=== PATIENT | female | born 1930 | race Caucasian/White ===

== ENCOUNTER 2017-07-31 14:15 | Inpatient (IN) | payer OTHER ==
--- NOTE | 2017-07-31 17:51 | GHP ---
[f rep st] HISTORY AND PHYSICAL POST ADMISSION PHYSICIAN EVALUATION AND REHABILITATION TREATMENT PLAN DATE OF ADMISSION: 07/31/2017 DATE OF EVALUATION: 07/31/2017. TIME OF EVALUATION: 1615. REFERRING FACILITY: [facility]. REFERRING PHYSICIAN: Dr. Thompson IMPAIRMENT GROUP: 1.1 DATE OF ONSET: 07/27/2017. CONSULTING PHYSICIAN: Neurologist, Dr. Carranza. 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 ETIOLOGIC DIAGNOSIS: Left body involvement (right brain). HISTORY OF PRESENT ILLNESS: This patient developed left-sided weakness on 07/27. By the time she arrived at the emergency department, she was outside the window for tPA thrombolysis. 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 Subsequently, an MRI of the brain revealed a subacute to acute lacunar infarct in the right barksdale radiata, andextensive white matter changes consistent with chronic microvascular ischemic disease. . She had improvement in her left arm weakness. There was minimal left leg weakness, though on hospital day 2 the left leg became weaker. An echocardiogram was done which showed no PFO. She had mild aortic stenosis. She had been taking anagrelide for essential thrombocytosis. This was discontinued on the advice of the patient's archeology faculty member due to potential association with thrombosis. Her aspirin dose was increased from 81 mg to 325 mg daily. OTHER LABS AND STUDIES: LDL was 100. Hemoglobin A1c was 6. Basic metabolic profile showed a slightly low potassium at 3.3 and some dehydration with a BUN of 23 and a creatinine of 0.69. Otherwise, renal function and electrolytes were within normal limits. CBC was normal. Platelet count was 362, and historically her platelet count has been as high as in the 700s on review of her [facility] medical record. Coagulation studies were normal. Troponin was negative. PRECAUTIONS: She is a fall risk. ACTIVE COMORBIDITIES: She has no active tier 1, tier 2 or tier 3 comorbidities. PAST MEDICAL HISTORY: 1. Essential thrombocytosis. 2. Hypertension. 3. Dyslipidemia. PAST SURGICAL HISTORY: She had a bladder suspension and a hysterectomy. MEDICATIONS: Prior to admission she was taking anagrelide, hydrochlorothiazide , and aspirin at 81 mg daily. She was taking atorvastatin 40 mg at bedtime. ADMISSION MEDICATIONS: 1. Aspirin 325 mg p.o. daily. 2. Atorvastatin 40 mg p.o. at bedtime. 3. Cholecalciferol 2000 units p.o. daily. 4. Ferrous sulfate 325 mg p.o. daily. 5. Hydrochlorothiazide 25 mg p.o. daily. ALLERGIES: She has multiple allergies listed to: 1. Bacitracin. 2. Mupirocin. 3. Neomycin. 4. Polymyxin B from a use of a Neosporin product. 5. Cephalexin. 6. Hydroxyurea. 7. Penicillin. 8. Phenylbutazone. PSYCHOSOCIAL HISTORY: She lives with a long-term partner. His children are involved in her care, in particular his daughter. She is a nonsmoker. She typically has 1 glass of wine every evening. 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 FAMILY HISTORY: Noncontributory. REVIEW OF SYSTEMS: She reports that her left arm and leg feel heavy. She denies vision changes, difficulty swallowing, numbness or tingling of the extremities. She thinks her sensation is intact. She has a good appetite. She denies nausea, vomiting, constipation, or diarrhea. She denies any dysuria , urinary frequency or incontinence. Otherwise, a 10-point review of systems is negative. PHYSICAL EXAM: VITAL SIGNS: Blood pressure is 166/98, heart rate is 80, respiratory rate is 14, oxygen saturation is 92% on room air, temperature is 36.8 degrees centigrade. Her weight is 56.6 kg for a body mass index of 24.4. GENERAL: This is a well-nourished, well-developed woman, appears her chronologic age. Cooperative and in no acute distress. HEENT: Extraocular movements are intact. Pupils are equal, round, and reactive to light. Mucous membranes are moist. Dentition is in good condition. She has an uncrowded airway, Mallampati class 1. NECK: Supple. HEART: There is a regular rate and rhythm with no murmurs, rubs, or gallops. LUNGS: Clear to auscultation bilaterally. ABDOMEN: Soft, nontender, nondistended with normoactive bowel sounds and no hepatosplenomegaly. EXTREMITIES: There is no cyanosis or clubbing. There is trace edema to the left foot. She has pes planus on the left. Dorsalis pedis pulses are 2+ bilaterally. NEUROLOGIC: She is alert and oriented x3. Cranial nerves 2-12 are grossly intact. There is no focal weakness. Sensation is intact to light touch. She has ataxia in the left upper and lower extremities. Deep tendon reflexes are 2+ bilaterally at the biceps and patella and absent bilaterally at the Achilles tendons. Plantar reflex is indeterminate bilaterally. Rapid alternating movements are intact. [id number] is slow and inaccurate on the left upper extremity, but normal on the right upper extremity. She has left pronator drift. CURRENT LEVEL OF FUNCTION PER THE PREADMISSION SCREEN: Regarding diet, feeding , and swallowing, she required setup and was on regular textures. Grooming required setup and supervision. She needed assist for bathing and dressing. Toileting required assistance and verbal cues. Bed mobility required minimal assistance and transfers minimal assistance using a front-wheeled walker. Her balance was fair. Her endurance was poor. She was able to ambulate 125 feet with minimal assist. She needed assist for stair climbing. Regarding cognition , it was noted that she followed simple directions. She had impaired insight, and repetition was required for new learning. She was noted to have a fall risk , poor balance, and left hemiparesis. There are no significant differences on today's exam from the preadmission screen. IMPRESSION: This is an 87-year-old woman who suffered a right barksdale radiata lacunar infarct. She has ataxia more than weakness of the left upper and lower extremities, and she has impairments to balance, mobility, and ability to carry out activities of daily living as a result. She has comorbid essential thrombocytosis, which was treated with anagrelide. Anagrelide was discontinued due to potential adverse effect of thrombosis. 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 She has extensive white matter changes on brain MRI consistent with chronic microvascular ischemic disease. Echocardiogram also had incidental finding of mild aortic stenosis. She was medically stabilized and is appropriate for inpatient rehabilitation where she will benefit from physical therapy and occupational therapy to optimize mobility and activities of daily living and speech and language pathology regarding cognition. Her goal is to complete a rehabilitation stay and then return home with her partner and family. For a safe discharge, it is expected that she will achieve modified independence with mobility, activities of daily living, cognition and medication management. She will need any durable medical equipment as determined during her stay as well as home health care, again as determined during her stay. There will need to be family training. She will have therapy with Physical Therapy, Occupational Therapy, and Speech and Language Pathology for 60 minutes a day for each discipline on 5-7 days of the week. Her expected duration of stay is 7-10 days. It is anticipated that upon discharge she will continue to benefit from home health services including speech and language pathology, occupational therapy, and physical therapy. Additionally, she may benefit from a stroke support group. PLAN: 1. Cerebrovascular accident, lacunar, to the right barksdale radiata with left upper and lower extremity ataxia and balance impairment. PT and OT to optimize mobility and activities of daily living toward the modified independent level. 2. 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 Assessment and treatment per Speech and Language Pathology. 3. Secondary stroke prevention. Will continue blood pressure and lipid control. Aspirin has been increased from 81 mg to 325 mg daily. 4. Hypertension. Blood pressure was elevated on admission to the inpatient rehabilitation unit. She may still be within the window of permissive hypertension. Will continue hydrochlorothiazide at 25 mg daily and will observe as to whether she needs additional antihypertensives. 5. Essential thrombocytosis with anagrelide having been discontinued. Will follow her platelet count and consider further discussions with archeology faculty member, Dr. Duffy, regarding management if her platelet count begins to climb significantly. 6. Dyslipidemia. Continue atorvastatin. 7. She comes out of the hospital with a prescription for ferrous sulfate 325 mg p.o. daily. We will check an iron panel as well as CBC in the morning to determine if there is any anemia or continuing iron deficiency. 8. 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 It is unlikely that they are clinically significant. 9. Aortic stenosis is also an incidental finding. She has not had any signs or symptoms of congestive heart failure. Her family reports that 2 years ago she won her age class at age 86 in the [facility], and she and her have been quite active. 10. Prophylaxis. She was treated with enoxaparin while in the hospital, and this will be continued until it is determined that she has adequate mobility for a reduced DVT risk. Additionally, she will have sequential compression devices on her legs when she is in bed at night. Followup. Per hospital discharge summary, she is to follow up with neurologist , Dr. Carranza in 6-8 weeks or mid to late September. She is to follow up with archeology faculty member, Dr. Duffy, in 7-10 days, which would be the first or second week of August, and she is to follow up with primary care provider, Dr. Leidy Escobar, with an appointment set up for 08/02/2017. It is likely she will still be in inpatient rehabilitation, so a visit with Dr. Ecsobar will need to be postponed. /[id number]/MODL MTDD
[2017-07-31] MEDS: ATORVASTATIN CALCIUM 40 MG TAB PO SCH (21:08)
[2017-08-01] MEDS: CHOLECALCIFEROL VIT D3 2,000 UNITS TAB/CAP PO SCH (07:55)
[2017-08-01] MEDS: HYDROCHLOROTHIAZIDE 25 MG TAB PO SCH (07:55)
[2017-08-01] MEDS: ASPIRIN 325 MG TAB PO SCH (07:55)
[2017-08-01] MEDS: ENOXAPARIN 40 MG/0.4 ML SYR SC SCH (07:56)
[2017-08-01] MEDS ORDERED: FERROUS SULFATE 325 MG TAB PO SCH (08:00)
[2017-08-01 08:15] LABS: PLATELET COUNT 469 10^3/uL (150-400)
--- NOTE | 2017-08-01 12:29 | SOAPPROG ---
SOAP Progress Note Assessment/Plan: Assessment: * Cerebrovascular accident, lacunar, to the right barksdale radiata with left upper and lower extremity ataxia and balance impairment. * Has ambulated 70 ft with front wheeled walker and contact guard to minimal assist. * Continue PT and OT to optimize mobility and activities of daily living toward the modified independent level. 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 Assessment and treatment per Speech and Language Pathology. * Secondary stroke prevention. Will continue blood pressure and lipid control. Aspirin has been increased from 81 mg to 325 mg daily. * Hypertension. Blood pressures are elevated. Add amlodipine 2.5 mg at HS. Continue hydrochlorothiazide at 25 mg daily. 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 Platelets slightly elevated on CBC 08/01/2017. Will follow her platelet count and consider further discussions with latent fingerprint examiner, Dr. Duffy, regarding management if her platelet count begins to climb significantly. * Dyslipidemia. Continue atorvastatin. * No anemia or iron deficiency on labs 08/01/2017. Discontinue ferrous sulfate starting 08/02/2017. 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 It is unlikely that they are clinically significant. * Aortic stenosis is also an incidental finding. She has not had any signs or symptoms of congestive heart failure. Her family reports that 2 years ago she won her age class at age 86 in the [facility], and she and her have been quite active. * Prophylaxis. She was treated with enoxaparin while in the hospital, and this will be continued until it is determined that she has adequate mobility for a reduced DVT risk. Additionally, she will have sequential compression devices on her legs when she is in bed at night. Followup. Per hospital discharge summary, she is to follow up with neurologist , Dr. Carranza in 6-8 weeks or mid to late September. She is to follow up with latent fingerprint examiner, Dr. Duffy, in 7-10 days, which would be the first or second week of August, and she is to follow up with primary care provider, Dr. Leidy Escobar, with an appointment set up for 08/02/2017. It is likely she will still be in inpatient rehabilitation, so a visit with Dr. Escobar will need to be postponed. 08/01/17 13:50 Subjective: Still feels that her left leg is heavy. However feels that she has made a good start with therapies. Has diarrhea since early this morning. Otherwise no complaints. Slept well, not in pain, no cough or dyspnea. Objective: Vital Signs Temp Pulse Resp BP Pulse Ox 36.4 C 80 15 160/98 H 91 L 08/01/17 06:15 08/01/17 10:21 08/01/17 06:15 08/01/17 10:21 08/01/17 06:15 Laboratory Results 08/01/17 06:10 08/01/17 06:10 07/31/17 08/01/17 08/02/17 05:59 05:59 05:59 Intake Total 850 810 Output Total 500 1300 Balance 350 -490 Physical Exam - Physical Exam General Appearance: WD/WN, alert, no apparent distress Respiratory: normal breath sounds, No crackles, No rhonchi, No wheezing Cardiac/Chest: regular rate, rhythm, No edema, No diastolic murmur, No systolic murmur Abdomen: normal bowel sounds, non-tender, soft, No distended Neuro/Psych: alert, normal mood/affect, oriented x 3 ICD10 Worksheet Patient Problems: Problems Problem Status Onset CVA (cerebral vascular accident) Acute - ICD10 Problem Qualifiers (1) CVA (cerebral vascular accident)
[2017-08-01] MEDS ORDERED: NON-FORMULARY NEW DRUG EACHEYE PRN (14:37)
[2017-08-01] MEDS ORDERED: NON-FORMULARY NEW DRUG EACHEYE SCH ×2 (16:00→21:00)
--- NOTE | 2017-08-01 17:48 | PDOREHIP ---
Admission [facility] - Admission - 3 Day Assessment Period Admission Date/Day 1: 07/31/17 Day 2: 08/01/17 Day 3: 08/02/17 - Active Diagnoses Comorbidities and Co-existing Conditions at Admission: 27144. None of the Above - Skin Conditions Unhealed Pressure Ulcer (1 or more/Stage 1 or >)-Admission: 0. No
[2017-08-01] MEDS: ATORVASTATIN CALCIUM 40 MG TAB PO SCH ×2 (20:30→20:31)
[2017-08-01] MEDS: SODIUM CHLORIDE EACHEYE SCH ×2 (20:42→20:44)
[2017-08-01] MEDS: REFRESH PLUS EYE EACHEYE PRN (20:42)
[2017-08-02] MEDS: ACETAMINOPHEN 325 MG TAB PO PRN ×2 (02:00→23:57)
[2017-08-02] MEDS: ASPIRIN 325 MG TAB PO SCH (08:37)
[2017-08-02] MEDS: CHOLECALCIFEROL VIT D3 2,000 UNITS TAB/CAP PO SCH (08:39)
[2017-08-02] MEDS: HYDROCHLOROTHIAZIDE 25 MG TAB PO SCH (08:39)
[2017-08-02] MEDS: SODIUM CHLORIDE EACHEYE SCH ×4 (09:37→20:55)
[2017-08-02] MEDS: ENOXAPARIN 40 MG/0.4 ML SYR SC SCH (09:37)
[2017-08-02] MEDS: REFRESH PLUS EYE EACHEYE PRN (13:58)
--- NOTE | 2017-08-02 14:06 | SOAPPROG ---
SOAP Progress Note Assessment/Plan: Assessment: * Cerebrovascular accident, lacunar, to the right barksdale radiata with left upper and lower extremity ataxia and balance impairment. * Initial functional independence measure 71 on 08/02/2017. Requires minimal assist for ambulation and transfers. Grooming and hygiene is done seated with standby assist. Upper body dressing is done with standby assist, lower body with setup and standby assist. Shower transfer and toileting required contact assist. Has ambulated 70 ft. * Continue PT and OT to optimize mobility and activities of daily living toward the modified independent level. * Cognitive dysfunction. * Noted to have deficits to reasoning, memory, working memory, and attention, executive function, organization, and math skills. * Continue [employer]ID [employer] [employer]. * Secondary stroke prevention. Will continue blood pressure and lipid control. Aspirin has been increased from 81 mg to 325 mg daily. * Hypertension. Blood pressures are elevated. Added amlodipine 2.5 mg at HS . Continue hydrochlorothiazide at 25 mg daily. * If blood pressures remain above 140/90, increase amlodipine. 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 * Expect resolution over a period of weeks. * If symptoms continue to interfere with sleep, consider low-dose ropinirole or Sinemet at bedtime. 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 Platelets slightly elevated on CBC 08/01/2017. Will follow her platelet count and consider further discussions with pelt inspector, Dr. Duffy, regarding management if her platelet count begins to climb significantly. * Repeat CBC on 08/05/2017. * Dyslipidemia. Continue atorvastatin. * No anemia or iron deficiency on labs 08/01/2017. Discontinue ferrous sulfate starting 08/02/2017. 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 It is unlikely that they are clinically significant. * Aortic stenosis is also an incidental finding. She has not had any signs or symptoms of congestive heart failure. Her family reports that 2 years ago she won her age class at age 86 in the [facility] [place], and she and her have been quite active. * Prophylaxis. She was treated with enoxaparin while in the hospital, and this will be continued until it is determined that she has adequate mobility for a reduced DVT risk. Additionally, she will have sequential compression devices on her legs when she is in bed at night. Followup. Per hospital discharge summary, she is to follow up with neurologist , Dr. Carranza in 6-8 weeks or mid to late September. She is to follow up with pelt inspector, Dr. Duffy, in 7-10 days, which would be the first or second week of August, and she is to follow up with primary care provider, Dr. Leidy Escobar, with an appointment set up for 08/02/2017. It is likely she will still be in inpatient rehabilitation, so a visit with Dr. Escobar will need to be postponed. Attended staffing, 15 min. Discussed with case management, dietitian, nursing, PT, OT, SKID RO[employer] MAN. Has been living with her long-term partner; she does driving and other visually related tasks. Partners currently with his daughter. Discharge disposition is uncertain. Set tentative discharge date of 08/21/2017. 08/02/17 14:07 Subjective: Reports an episode of involuntary leg movement overnight nurse reports this happened approximately 1 in the morning she was given acetaminophen and was able to retain sleep after about an hour and a half. She has not had this kind of thing happen to her before. Otherwise without complaints. Diarrhea that she had yesterday has resolved. She was incontinent of urine x1 overnight. Objective: Vital Signs Temp Pulse Resp BP Pulse Ox 36.6 C 72 17 149/80 H 94 08/02/17 05:40 08/02/17 05:40 08/02/17 05:40 08/02/17 08:39 08/02/17 05:40 Laboratory Results 08/01/17 06:10 08/01/17 06:10 08/01/17 08/02/17 08/03/17 05:59 05:59 05:59 Intake Total 850 1510 600 Output Total 500 1750 850 Balance 350 -240 -250 - Time Spent With Patient Time Spent With Patient: Greater than 35 min floor time today, including more than 50% of time in coordination of care during staffing meeting, and counseling patient. Physical Exam - Physical Exam General Appearance: WD/WN, alert, no apparent distress Respiratory: normal breath sounds, No crackles, No wheezing Cardiac/Chest: regular rate, rhythm, No edema, No diastolic murmur, No systolic murmur Skin: normal color, warm/dry Extremities: No pedal edema, No calf tenderness, No swelling Neuro/Psych: alert, normal mood/affect, oriented x 3, abnormal gait (With front wheeled walker, slow, slightly wide-based, left lower extremity ataxia, contact guard assist per Physical therapy.) ICD10 Worksheet Patient Problems: Problems Problem Status Onset CVA (cerebral vascular accident) Acute - ICD10 Problem Qualifiers (1) CVA (cerebral vascular accident)
[2017-08-02] MEDS: ATORVASTATIN CALCIUM 40 MG TAB PO SCH (20:53)
[2017-08-03] MEDS: CHOLECALCIFEROL VIT D3 2,000 UNITS TAB/CAP PO SCH (07:56)
[2017-08-03] MEDS: ENOXAPARIN 40 MG/0.4 ML SYR SC SCH (07:56)
[2017-08-03] MEDS: ASPIRIN 325 MG TAB PO SCH (07:56)
[2017-08-03] MEDS: HYDROCHLOROTHIAZIDE 25 MG TAB PO SCH (07:56)
--- NOTE | 2017-08-03 09:28 | SOAPPROG ---
SOAP Progress Note Assessment/Plan: Assessment: * Cerebrovascular accident, lacunar, to the right barksdale radiata with left upper and lower extremity ataxia and balance impairment. * Initial functional independence measure 71 on 08/02/2017. Requires minimal assist for ambulation and transfers. Grooming and hygiene is done seated with standby assist. Upper body dressing is done with standby assist, lower body with setup and standby assist. Shower transfer and toileting required contact assist. Has ambulated 70 ft. * Continue PT and OT to optimize mobility and activities of daily living toward the modified independent level. * REVIEWED EXERCISES WITH PATIENT TO STRENGTH IN LEFT HIP FLEXORS, QUADRICEPS AND ANKLE DORSIFLEXORS. SHE CAN PERFORM THESE 20 TIMES PER HOUR WHILE AWAKE. * Cognitive dysfunction. * Noted to have deficits to reasoning, memory, working memory, and attention, executive function, organization, and math skills. * Continue HOSPITAL LABORATORY TECHNICIAN. * Secondary stroke prevention. Will continue blood pressure and lipid control. Aspirin has been increased from 81 mg to 325 mg daily. * Hypertension. Blood pressures are elevated. Added amlodipine 2.5 mg at HS . Continue hydrochlorothiazide at 25 mg daily. * If blood pressures remain above 140/90, increase amlodipine. BLOOD PRESSURE THIS MORNING WAS 133/79. 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 BY HER REPORTS THIS IS IMPROVING. * Expect resolution over a period of weeks. * If symptoms continue to interfere with sleep, consider low-dose ropinirole or Sinemet at bedtime. 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 Platelets slightly elevated on CBC 08/01/2017. Will follow her platelet count and consider further discussions with customer experience analyst, Dr. Duffy, regarding management if her platelet count begins to climb significantly. * Repeat CBC on 08/05/2017. * Dyslipidemia. Continue atorvastatin. * No anemia or iron deficiency on labs 08/01/2017. Discontinue ferrous sulfate starting 08/02/2017. 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 It is unlikely that they are clinically significant. * Aortic stenosis is also an incidental finding. She has not had any signs or symptoms of congestive heart failure. Her family reports that 2 years ago she won her age class at age 86 in the [facility], and she and her have been quite active. * Prophylaxis. She was treated with enoxaparin while in the hospital, and this will be continued until it is determined that she has adequate mobility for a reduced DVT risk. Additionally, she will have sequential compression devices on her legs when she is in bed at night. Followup. Per hospital discharge summary, she is to follow up with neurologist , Dr. Carranza in 6-8 weeks or mid to late September. She is to follow up with customer experience analyst, Dr. Duffy, in 7-10 days, which would be the first or second week of August, and she is to follow up with primary care provider, Dr. Leidy Escobar, with an appointment set up for 08/02/2017. It is likely she will still be in inpatient rehabilitation, so a visit with Dr. Escobar will need to be postponed. 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 HE SHE REPORTS HER LEFT FOOT HEEL SOMEWHAT HEAVY BUT SHE DOES NOTICE IMPROVED LEFT UPPER AND LEFT LOWER EXTREMITY STRENGTH. Objective: Vital Signs Temp Pulse Resp BP Pulse Ox 36.4 C 65 17 133/79 H 91 L 08/03/17 05:26 08/03/17 05:26 08/03/17 05:26 08/03/17 05:26 08/03/17 05:26 Laboratory Results 08/01/17 06:10 08/01/17 06:10 08/02/17 08/03/17 08/04/17 05:59 05:59 05:59 Intake Total 1510 1090 Output Total 1750 2650 Balance -240 -1560 Physical Exam - Physical Exam General Appearance: WD/WN, alert, no apparent distress Respiratory: lungs clear, normal breath sounds Cardiac/Chest: regular rate, rhythm, No edema Abdomen: normal bowel sounds, non-tender, soft Skin: normal color, warm/dry Neuro/Psych: normal mood/affect, oriented x 3, motor weakness (MILD LEFT UPPER AND LEFT LOWER EXTREMITY WEAKNESS, MORE PRONOUNCED IN THE LEFT LOWER EXTREMITY AND MORE PRONOUNCED IN THE ANKLE DORSIFLEXORS ALTHOUGH HER STRENGTH IS QUITE FUNCTIONAL.) ICD10 Worksheet Patient Problems: Problems Problem Status Onset CVA (cerebral vascular accident) Acute
[2017-08-03] MEDS: SODIUM CHLORIDE EACHEYE SCH ×4 (11:12→21:11)
[2017-08-03] MEDS: REFRESH PLUS EYE EACHEYE PRN (12:52)
[2017-08-03] MEDS: ATORVASTATIN CALCIUM 40 MG TAB PO SCH (20:57)
[2017-08-04] MEDS: HYDROCHLOROTHIAZIDE 25 MG TAB PO SCH (08:53)
[2017-08-04] MEDS: SODIUM CHLORIDE EACHEYE SCH ×4 (08:53→22:01)
[2017-08-04] MEDS: ENOXAPARIN 40 MG/0.4 ML SYR SC SCH (08:53)
[2017-08-04] MEDS: ASPIRIN 325 MG TAB PO SCH (08:53)
[2017-08-04] MEDS: CHOLECALCIFEROL VIT D3 2,000 UNITS TAB/CAP PO SCH (08:53)
--- NOTE | 2017-08-04 10:03 | SOAPPROG ---
SOAP Progress Note Assessment/Plan: Assessment: * Cerebrovascular accident, lacunar, to the right barksdale radiata with left upper and lower extremity ataxia and balance impairment. * Initial functional independence measure 71 on 08/02/2017. Requires minimal assist for ambulation and transfers. SHE REPORTS SHE IS INCREASING HER AMBULATION DISTANCES WHILE IN PHYSICAL THERAPY. Grooming and hygiene is done seated with standby assist. Upper body dressing is done with standby assist, lower body with setup and standby assist. Shower transfer and toileting required contact assist. Has ambulated 70 ft. * Continue PT and OT to optimize mobility and activities of daily living toward the modified independent level. * SHE REPORTS COMPLIANCE WITH EXERCISES TO STRENGTHEN LEFT HIP FLEXORS, QUADRICEPS AND ANKLE DORSIFLEXORS. SHE CAN PERFORM THESE 20 TIMES PER HOUR WHILE AWAKE. * Cognitive dysfunction. * Noted to have deficits to reasoning, memory, working memory, and attention, executive function, organization, and math skills. * Continue CHILD CARE PROVIDER. * Secondary stroke prevention. Will continue blood pressure and lipid control. Aspirin has been increased from 81 mg to 325 mg daily. * Hypertension. BLOOD PRESSURE THIS MORNING WAS 138/78. 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 BY HER REPORTS THIS IS IMPROVING. * Expect resolution over a period of weeks. * If symptoms continue to interfere with sleep, consider low-dose ropinirole or Sinemet at bedtime. 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 Platelets slightly elevated on CBC 08/01/2017. Will follow her platelet count and consider further discussions with miter sawyer, Dr. Duffy, regarding management if her platelet count begins to climb significantly. * Repeat CBC on 08/05/2017. * Dyslipidemia. Continue atorvastatin. * No anemia or iron deficiency on labs 08/01/2017. Discontinue ferrous sulfate starting 08/02/2017. 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 It is unlikely that they are clinically significant. * Aortic stenosis is also an incidental finding. She has not had any signs or symptoms of congestive heart failure. Her family reports that 2 years ago she won her age class at age 86 in the [facility], and she and her have been quite active. * Prophylaxis. She was treated with enoxaparin while in the hospital, and this will be continued until it is determined that she has adequate mobility for a reduced DVT risk. Additionally, she will have sequential compression devices on her legs when she is in bed at night. Followup. Per hospital discharge summary, she is to follow up with neurologist , Dr. Carranza in 6-8 weeks or mid to late September. She is to follow up with miter sawyer, Dr. Duffy, in 7-10 days, which would be the first or second week of August, and she is to follow up with primary care provider, Dr. Leidy Escobar, with an appointment set up for 08/02/2017. It is likely she will still be in inpatient rehabilitation, so a visit with Dr. Escobar will need to be postponed. Plan: 08/03/17 09:28 08/04/17 10:02 Subjective: NO NEW COMPLAINTS THIS MORNING. SHE REPORTS THAT SHE IS INCREASING HER AMBULATION DISTANCES WITH PHYSICAL THERAPY. SHE HAS BEEN DOING HER BEDSIDE LOWER EXTREMITY STRENGTHENING EXERCISES. Objective: Vital Signs Temp Pulse Resp BP Pulse Ox 36.5 C 75 16 138/78 H 94 08/04/17 06:19 08/04/17 06:19 08/04/17 06:19 08/04/17 06:19 08/04/17 06:19 Laboratory Results 08/01/17 06:10 08/01/17 06:10 08/03/17 08/04/17 08/05/17 05:59 05:59 05:59 Intake Total 1090 1630 360 Output Total 2650 1999 Balance -1560 -370 360 Physical Exam - Physical Exam General Appearance: WD/WN, alert, no apparent distress Respiratory: lungs clear, normal breath sounds Cardiac/Chest: No edema Abdomen: non-tender, soft Skin: normal color, warm/dry Extremities: No pedal edema, No calf tenderness, No swelling, No Evan's sign Neuro/Psych: normal mood/affect, oriented x 3, motor weakness (LEFT LOWER EXTREMITY WEAKNESS GREATER THAN RIGHT LOWER EXTREMITY.) ICD10 Worksheet Patient Problems: Problems Problem Status Onset CVA (cerebral vascular accident) Acute
[2017-08-04] MEDS: REFRESH PLUS EYE EACHEYE PRN ×2 (16:36→20:36)
[2017-08-04] MEDS: ATORVASTATIN CALCIUM 40 MG TAB PO SCH (20:32)
[2017-08-05] MEDS: ACETAMINOPHEN 325 MG TAB PO PRN ×2 (01:34→23:20)
[2017-08-05 08:15] LABS: PLATELET COUNT 634 10^3/uL (150-400)
[2017-08-05] MEDS: HYDROCHLOROTHIAZIDE 25 MG TAB PO SCH (08:53)
[2017-08-05] MEDS: ASPIRIN 325 MG TAB PO SCH (08:53)
[2017-08-05] MEDS: CHOLECALCIFEROL VIT D3 2,000 UNITS TAB/CAP PO SCH (08:53)
[2017-08-05] MEDS: SODIUM CHLORIDE EACHEYE SCH ×4 (08:53→21:25)
[2017-08-05] MEDS: ENOXAPARIN 40 MG/0.4 ML SYR SC SCH (08:53)
--- NOTE | 2017-08-05 14:13 | SOAPPROG ---
SOAP Progress Note Assessment/Plan: Assessment: * Cerebrovascular accident, lacunar, to the right barksdale radiata with left upper and lower extremity ataxia and balance impairment. * Initial functional independence measure 71 on 08/02/2017. Requires minimal assist for ambulation and transfers. Grooming and hygiene are done seated with standby assist. Upper body dressing is done with standby assist, lower body with setup and standby assist. Shower transfer and toileting required contact assist. Has ambulated 70 ft. * Continue PT and OT to optimize mobility and activities of daily living toward the modified independent level. * Cognitive dysfunction. * Noted to have deficits to reasoning, memory, working memory, and attention, executive function, organization, and math skills. * Using a log book. * Continue BOARD DESIGN ENGINEER. * Secondary stroke prevention. Will continue blood pressure and lipid control. Aspirin has been increased from 81 mg to 325 mg daily. * Hypertension. Blood pressures are elevated. Added amlodipine 2.5 mg at HS . Continue hydrochlorothiazide at 25 mg daily. * If blood pressures remain above 140/90, increase amlodipine. 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 * Expect resolution over a period of weeks. * If symptoms continue to interfere with sleep, consider low-dose ropinirole or Sinemet at bedtime. 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 Platelets slightly elevated at 468 on CBC 08/01/2017, increased to 684 on 08/05/2017. * Discussed with Dr. Duffy on 08/05/2017 (cell # [phone]). Advises weekly CBC; call him with result. * Dyslipidemia. Continue atorvastatin. * No anemia or iron deficiency on labs 08/01/2017. Discontinued ferrous sulfate starting 08/02/2017. 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 It is unlikely that they are clinically significant. * Aortic stenosis is also an incidental finding. She has not had any signs or symptoms of congestive heart failure. Her family reports that 2 years ago she won her age class at age 86 in the [facility], and she and her have been quite active. * Prophylaxis. She was treated with enoxaparin while in the hospital, and this will be continued until it is determined that she has adequate mobility for a reduced DVT risk. Additionally, she will have sequential compression devices on her legs when she is in bed at night. Followup. Per hospital discharge summary, she is to follow up with neurologist , Dr. Carranza in 6-8 weeks or mid to late September. She is to follow up with control tower operator, Dr. Duffy, the week of discharge from Inpatient Rehabilitation, and she is to follow up with primary care provider, Dr. Leidy Escobar after discharge from inpatient rehabilitation. Has been living with her long-term partner; she does driving and other visually related tasks as he has visual impairment due to macular degeneration, but is otherwise self sufficient. She intends to return home with her partner. Tentative discharge date of 08/21/2017. Will have home OT, PT and BOARD DESIGN ENGINEER. 08/05/17 14:58 Subjective: Involuntary contraction at the left hip interfered with her sleep last night. She slept well the previous 2 nights. Otherwise doing well, not in pain, no cough or dyspnea, no fevers or chills. Feels she is walking better and the use of her left hand is improving also. Objective: Vital Signs Temp Pulse Resp BP Pulse Ox 36.4 C 71 16 141/77 H 91 L 08/05/17 06:41 08/05/17 06:41 08/05/17 06:41 08/05/17 06:41 08/05/17 06:41 Laboratory Results 08/05/17 06:30 08/01/17 06:10 08/04/17 08/05/17 08/06/17 05:59 05:59 05:59 Intake Total 1630 1500 660 Output Total 2000 1700 625 Balance -370 -200 35 Physical Exam - Physical Exam General Appearance: WD/WN, alert, no apparent distress Respiratory: normal breath sounds, No crackles, No rhonchi, No wheezing Cardiac/Chest: regular rate, rhythm, No edema, No diastolic murmur, No systolic murmur Skin: normal color, warm/dry Neuro/Psych: alert, normal mood/affect, oriented x 3, motor weakness (Working with OT, manipulating coins in her left hand and dropping them through a slot into a container. Able to complete the action but slow and ataxic.) ICD10 Worksheet Patient Problems: Problems Problem Status Onset CVA (cerebral vascular accident) Acute - ICD10 Problem Qualifiers (1) CVA (cerebral vascular accident)
[2017-08-05] MEDS: REFRESH PLUS EYE EACHEYE PRN (18:11)
[2017-08-05] MEDS: ATORVASTATIN CALCIUM 40 MG TAB PO SCH (21:22)
[2017-08-06] MEDS: ASPIRIN 325 MG TAB PO SCH (08:38)
[2017-08-06] MEDS: HYDROCHLOROTHIAZIDE 25 MG TAB PO SCH (08:38)
[2017-08-06] MEDS: CHOLECALCIFEROL VIT D3 2,000 UNITS TAB/CAP PO SCH (08:38)
[2017-08-06] MEDS: ENOXAPARIN 40 MG/0.4 ML SYR SC SCH (09:28)
[2017-08-06] MEDS: SODIUM CHLORIDE EACHEYE SCH ×4 (09:28→20:07)
--- NOTE | 2017-08-06 16:29 | SOAPPROG ---
SOAP Progress Note Assessment/Plan: Assessment: * Cerebrovascular accident, lacunar, to the right barksdale radiata, with left upper and lower extremity ataxia and balance impairment. * Initial functional independence measure 71 on 08/02/2017. Requires minimal assist for ambulation and transfers. Grooming and hygiene are done seated with standby assist. Upper body dressing is done with standby assist, lower body with setup and standby assist. Shower transfer and toileting required contact assist. Has ambulated 70 ft. * Continue PT and OT to optimize mobility and activities of daily living toward the modified independent level. * Cognitive dysfunction. * Noted to have deficits to reasoning, memory, working memory, and attention, executive function, organization, and math skills. * Using a log book. * Continue LABORATORY SCIENTIST. * Secondary stroke prevention. Will continue blood pressure and lipid control. Aspirin has been increased from 81 mg to 325 mg daily. * Hypertension. Blood pressures are elevated. Added amlodipine 2.5 mg at HS . Continue hydrochlorothiazide at 25 mg daily. * If blood pressures remain above 140/90, increase amlodipine. 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 * Expect resolution over a period of weeks. * Continue to interfere with sleep. Will treat with Sinemet CR, 25/100, starting tonight, 08/06/2017. 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 Platelets slightly elevated at 468 on CBC 08/01/2017, increased to 684 on 08/05/2017. * Discussed with Dr. Duffy on 08/05/2017 (cell # [phone]). Advises weekly CBC; call him with result. * Dyslipidemia. Continue atorvastatin. * No anemia or iron deficiency on labs 08/01/2017. Discontinued ferrous sulfate starting 08/02/2017. 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 It is unlikely that they are clinically significant. * Aortic stenosis is also an incidental finding. She has not had any signs or symptoms of congestive heart failure. Her family reports that 2 years ago she won her age class at age 86 in the [facility], and she and her have been quite active. * Prophylaxis. She was treated with enoxaparin while in the hospital, and this will be continued until it is determined that she has adequate mobility for a reduced DVT risk. Additionally, she will have sequential compression devices on her legs when she is in bed at night. Followup. Per hospital discharge summary, she is to follow up with neurologist , Dr. Carranza in 6-8 weeks or mid to late September. She is to follow up with tile grader, Dr. Duffy, the week of discharge from Inpatient Rehabilitation, and she is to follow up with primary care provider, Dr. Leidy Escobar after discharge from inpatient rehabilitation. Has been living with her long-term partner; she does driving and other visually related tasks as he has visual impairment due to macular degeneration, but is otherwise self sufficient. She intends to return home with her partner. Tentative discharge date of 08/21/2017. Will have home OT, PT and LABORATORY SCIENTIST. 08/06/17 16:24 Subjective: Reports involuntary contractions of the right hip again last night which interfered with sleep. Was given acetaminophen which did not help much. Otherwise without complaints but feels that she is not at her best due to lack of sleep. Objective: Vital Signs Temp Pulse Resp BP Pulse Ox 36.6 C 68 18 153/89 H 92 08/06/17 06:03 08/06/17 06:03 08/06/17 06:03 08/06/17 08:38 08/06/17 06:03 Laboratory Results 08/05/17 06:30 08/01/17 06:10 08/05/17 08/06/17 08/07/17 05:59 05:59 05:59 Intake Total 1500 1310 420 Output Total 1700 1975 300 Balance -200 -665 120 Physical Exam - Physical Exam General Appearance: WD/WN, alert, no apparent distress Respiratory: normal breath sounds, No crackles, No rhonchi, No wheezing Cardiac/Chest: regular rate, rhythm, No edema, No diastolic murmur, No systolic murmur Skin: normal color, warm/dry Neuro/Psych: alert, normal mood/affect, oriented x 3, abnormal gait (With front wheeled walker and contact guard assist per Physical therapy, slow, with ataxic placement of left foot.) ICD10 Worksheet Patient Problems: Problems Problem Status Onset CVA (cerebral vascular accident) Acute - ICD10 Problem Qualifiers (1) CVA (cerebral vascular accident)
[2017-08-06] MEDS: ATORVASTATIN CALCIUM 40 MG TAB PO SCH (20:06)
[2017-08-06] MEDS: CARBIDOPA/LEVO CR 25 MG/100 MG TAB PO SCH (20:06)
[2017-08-07] MEDS: ASPIRIN 325 MG TAB PO SCH (08:55)
[2017-08-07] MEDS: CHOLECALCIFEROL VIT D3 2,000 UNITS TAB/CAP PO SCH (08:55)
[2017-08-07] MEDS: HYDROCHLOROTHIAZIDE 25 MG TAB PO SCH (08:57)
[2017-08-07] MEDS: ENOXAPARIN 40 MG/0.4 ML SYR SC SCH (08:57)
[2017-08-07] MEDS: SODIUM CHLORIDE EACHEYE SCH ×4 (08:59→20:19)
--- NOTE | 2017-08-07 15:35 | SOAPPROG ---
SOAP Progress Note Assessment/Plan: Assessment: * Cerebrovascular accident, lacunar, to the right barksdale radiata, with left upper and lower extremity ataxia and balance impairment. * Initial functional independence measure 71 on 08/02/2017. Requires minimal assist for ambulation and transfers. Grooming and hygiene are done seated with standby assist. Upper body dressing is done with standby assist, lower body with setup and standby assist. Shower transfer and toileting required contact assist. Has ambulated 70 ft. * Continue PT and OT to optimize mobility and activities of daily living toward the modified independent level. * Cognitive dysfunction. * Noted to have deficits to reasoning, memory, working memory, and attention, executive function, organization, and math skills. * Using a log book. * Continue DESK OPERATOR. * Secondary stroke prevention. Will continue blood pressure and lipid control. Aspirin has been increased from 81 mg to 325 mg daily. * Hypertension. Blood pressures are elevated. Added amlodipine 2.5 mg at HS . Continue hydrochlorothiazide at 25 mg daily. * If blood pressures remain above 140/90, increase amlodipine. 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 * Expect resolution over a period of weeks. * Initiated Sinemet CR, 25/100 at HS, 08/06/2017. Had no symptoms overnight. 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 Platelets slightly elevated at 468 on CBC 08/01/2017, increased to 684 on 08/05/2017. * Discussed with Dr. Duffy on 08/05/2017 (cell # [phone]). Advises weekly CBC; call him with result. * Dyslipidemia. Continue atorvastatin. * No anemia or iron deficiency on labs 08/01/2017. Discontinued ferrous sulfate starting 08/02/2017. 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 It is unlikely that they are clinically significant. * Aortic stenosis is also an incidental finding. She has not had any signs or symptoms of congestive heart failure. Her family reports that 2 years ago she won her age class at age 86 in the [facility], and she and her have been quite active. * Prophylaxis. She was treated with enoxaparin while in the hospital, and this will be continued until it is determined that she has adequate mobility for a reduced DVT risk. Additionally, she will have sequential compression devices on her legs when she is in bed at night. Followup. Per hospital discharge summary, she is to follow up with neurologist , Dr. Carranza in 6-8 weeks or mid to late September. She is to follow up with retirement specialist, Dr. Duffy, the week of discharge from Inpatient Rehabilitation, and she is to follow up with primary care provider, Dr. Leidy Escobar after discharge from inpatient rehabilitation. Has been living with her long-term partner; she does driving and other visually related tasks as he has visual impairment due to macular degeneration, but is otherwise self sufficient. She intends to return home with her partner. Tentative discharge date of 08/21/2017. Will have home OT, PT and DESK OPERATOR. 08/07/17 15:33 Subjective: No complaints. Working with therapies. Feels like she is getting better every day. Objective: Vital Signs Temp Pulse Resp BP Pulse Ox 36.6 C 58 L 16 131/57 H 97 08/07/17 07:27 08/07/17 07:27 08/07/17 07:27 08/07/17 08:57 08/07/17 07:27 Laboratory Results 08/05/17 06:30 08/01/17 06:10 08/06/17 08/07/17 08/08/17 05:59 05:59 05:59 Intake Total 1310 770 510 Output Total 3332 9809 825 Balance -665 -730 -315 Physical Exam - Physical Exam General Appearance: WD/WN, alert, no apparent distress Respiratory: No respiratory distress, No accessory muscle use Skin: normal color, warm/dry Neuro/Psych: alert, normal mood/affect, oriented x 3, motor weakness (Working with physical therapist on weight shift onto left foot with stabilization of pelvis and initiating step with right foot.) ICD10 Worksheet Patient Problems: Problems Problem Status Onset CVA (cerebral vascular accident) Acute - ICD10 Problem Qualifiers (1) CVA (cerebral vascular accident)
[2017-08-07] MEDS: ATORVASTATIN CALCIUM 40 MG TAB PO SCH (20:18)
[2017-08-07] MEDS: CARBIDOPA/LEVO CR 25 MG/100 MG TAB PO SCH (20:19)
[2017-08-08] MEDS: HYDROCHLOROTHIAZIDE 25 MG TAB PO SCH (08:41)
[2017-08-08] MEDS: ENOXAPARIN 40 MG/0.4 ML SYR SC SCH (08:41)
[2017-08-08] MEDS: CHOLECALCIFEROL VIT D3 2,000 UNITS TAB/CAP PO SCH (08:42)
[2017-08-08] MEDS: ASPIRIN 325 MG TAB PO SCH (08:42)
[2017-08-08] MEDS: SODIUM CHLORIDE EACHEYE SCH ×4 (08:47→20:24)
--- NOTE | 2017-08-08 15:38 | SOAPPROG ---
SOAP Progress Note Assessment/Plan: Assessment: * Cerebrovascular accident, lacunar, to the right barksdale radiata, with left upper and lower extremity ataxia and balance impairment. * Initial functional independence measure 71 on 08/02/2017. Requires minimal assist for ambulation and transfers. Grooming and hygiene are done seated with standby assist. Upper body dressing is done with standby assist, lower body with setup and standby assist. Shower transfer and toileting required contact assist. Has ambulated 70 ft. * Continue PT and OT to optimize mobility and activities of daily living toward the modified independent level. * Cognitive dysfunction. * Noted to have deficits to reasoning, memory, working memory, and attention, executive function, organization, and math skills. * Using a log book. * Continue NEW AUTOS DELIVERY DRIVER. * Secondary stroke prevention. Will continue blood pressure and lipid control. Aspirin has been increased from 81 mg to 325 mg daily. * Hypertension. Blood pressures are elevated. Added amlodipine 2.5 mg at HS . Continue hydrochlorothiazide at 25 mg daily. * Blood pressures often above 140/90. Increase amlodipine to 5 mg at HS starting 08/08/2017. 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 * Expect resolution over a period of weeks. * Initiated Sinemet CR, 25/100 at HS, 08/06/2017. Had no symptoms overnight. 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 Platelets slightly elevated at 468 on CBC 08/01/2017, increased to 684 on 08/05/2017. * Discussed with Dr. Duffy on 08/05/2017 (cell # [phone]). Advises weekly CBC; call him with result. * Dyslipidemia. Continue atorvastatin. * No anemia or iron deficiency on labs 08/01/2017. Discontinued ferrous sulfate starting 08/02/2017. 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 It is unlikely that they are clinically significant. * Aortic stenosis is also an incidental finding. She has not had any signs or symptoms of congestive heart failure. Her family reports that 2 years ago she won her age class at age 86 in the [facility], and she and her have been quite active. * Prophylaxis. She was treated with enoxaparin while in the hospital, and this will be continued until it is determined that she has adequate mobility for a reduced DVT risk. Additionally, she will have sequential compression devices on her legs when she is in bed at night. Followup. Per hospital discharge summary, she is to follow up with neurologist , Dr. Carranza in 6-8 weeks or mid to late September. She is to follow up with education assistant, Dr. Duffy, the week of discharge from Inpatient Rehabilitation, and she is to follow up with primary care provider, Dr. Leidy Escobar after discharge from inpatient rehabilitation. Has been living with her long-term partner; she does driving and other visually related tasks as he has visual impairment due to macular degeneration, but is otherwise self sufficient. She intends to return home with her partner. Tentative discharge date of 08/21/2017. Will have home OT, PT and NEW AUTOS DELIVERY DRIVER. 08/08/17 15:35 Subjective: No complaints. No cough or dyspnea, no fevers or chills, not in pain. She reports that she has exercises from the therapist that she can do while in her room. Objective: Vital Signs Temp Pulse Resp BP Pulse Ox 36.6 C 71 16 140/78 H 90 L 08/08/17 06:33 08/08/17 06:33 08/08/17 06:33 08/08/17 06:33 08/08/17 06:33 Laboratory Results 08/05/17 06:30 08/01/17 06:10 08/07/17 08/08/17 08/09/17 05:59 05:59 05:59 Intake Total 770 810 690 Output Total 1500 1825 150 Balance -730 -1015 540 Physical Exam - Physical Exam General Appearance: WD/WN, alert, no apparent distress Respiratory: normal breath sounds, No crackles, No rhonchi, No wheezing Cardiac/Chest: regular rate, rhythm, No edema, No diastolic murmur, No systolic murmur Skin: normal color, warm/dry Neuro/Psych: alert, normal mood/affect, oriented x 3 ICD10 Worksheet Patient Problems: Problems Problem Status Onset CVA (cerebral vascular accident) Acute - ICD10 Problem Qualifiers (1) CVA (cerebral vascular accident)
[2017-08-08] MEDS: CARBIDOPA/LEVO CR 25 MG/100 MG TAB PO SCH (20:22)
[2017-08-08] MEDS: ATORVASTATIN CALCIUM 40 MG TAB PO SCH (20:22)
[2017-08-09] MEDS: ENOXAPARIN 40 MG/0.4 ML SYR SC SCH (07:58)
[2017-08-09] MEDS: HYDROCHLOROTHIAZIDE 25 MG TAB PO SCH (08:00)
[2017-08-09] MEDS: ASPIRIN 325 MG TAB PO SCH (08:00)
[2017-08-09] MEDS: CHOLECALCIFEROL VIT D3 2,000 UNITS TAB/CAP PO SCH (08:00)
[2017-08-09] MEDS: SODIUM CHLORIDE EACHEYE SCH ×4 (09:36→21:17)
--- NOTE | 2017-08-09 14:49 | SOAPPROG ---
SOAP Progress Note Assessment/Plan: Assessment: * Cerebrovascular accident, lacunar, to the right barksdale radiata, with left upper and lower extremity ataxia and balance impairment. * Initial functional independence measure 71 on 08/02/2017; improved to 91 as of 08/09/2017. Standby assist to contact guard assist for mobility. Activities daily living standby assist except for independent with bathing. Has ambulated more than 150 ft. * Continue PT and OT to optimize mobility and activities of daily living toward the modified independent level. * Cognitive dysfunction. * Noted to have deficits to working memory and divided attention. * Using a log book. * Continue PRESETTER OPERATOR. * Secondary stroke prevention. Will continue blood pressure and lipid control. Aspirin has been increased from 81 mg to 325 mg daily. * Hypertension. Blood pressures are elevated. Added amlodipine 2.5 mg at HS . Continue hydrochlorothiazide at 25 mg daily. * Blood pressures often above 140/90. Increase amlodipine to 5 mg at HS starting 08/08/2017. 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 * Expect resolution over a period of weeks. * Initiated Sinemet CR, 25/100 at HS, 08/06/2017. Had no symptoms overnight. 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 Platelets slightly elevated at 468 on CBC 08/01/2017, increased to 684 on 08/05/2017. * Discussed with Dr. Duffy on 08/05/2017 (cell # [phone]). Advises weekly CBC; call him with result. Next blood draw at planned for 08/12/2017. * Dyslipidemia. Continue atorvastatin. * No anemia or iron deficiency on labs 08/01/2017. Discontinued ferrous sulfate starting 08/02/2017. 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 It is unlikely that they are clinically significant. * Aortic stenosis is also an incidental finding. She has not had any signs or symptoms of congestive heart failure. Her family reports that 2 years ago she won her age class at age 86 in the [facility], and she and her have been quite active. * Prophylaxis. She was treated with enoxaparin while in the hospital, and this will be continued until it is determined that she has adequate mobility for a reduced DVT risk. Additionally, she will have sequential compression devices on her legs when she is in bed at night. Followup. Per hospital discharge summary, she is to follow up with neurologist , Dr. Carranza in 6-8 weeks or mid to late September. She is to follow up with engraver jewelry, Dr. Duffy, the week of discharge from Inpatient Rehabilitation, and she is to follow up with primary care provider, Dr. Leidy Escobar after discharge from inpatient rehabilitation. Attended staffing, 15 min. Discussed with case management, dietitian, nursing, PT, OT, PRESETTER OPERATOR. Has been living with her long-term partner; she does driving and other visually related tasks as he has visual impairment due to macular degeneration, but is otherwise self sufficient. She she values her independence highly and intends to return home with her partner. She will need to be able to climb and descend stairs safely. She may have to accept assistance in the home. Tentative discharge date of 08/16/2017. Will have home OT, PT and PRESETTER OPERATOR. 08/09/17 14:43 Subjective: No complaints. Asks about likelihood of a subsequent stroke. Asks about blood pressure medications. Working with therapies, feeling stronger but knows that she is not yet walking normally. Sleeps well. No fevers or chills, no cough or dyspnea. Objective: Vital Signs Temp Pulse Resp BP Pulse Ox 36.4 C 91 16 150/80 H 95 08/09/17 07:06 08/09/17 07:06 08/09/17 07:06 08/09/17 07:06 08/09/17 07:06 Laboratory Results 08/05/17 06:30 08/01/17 06:10 08/08/17 08/09/17 08/10/17 05:59 05:59 05:59 Intake Total 810 1340 240 Output Total 9830 7652 327 Balance -1015 -410 -660 - Time Spent With Patient Time Spent With Patient: Greater than 35 min floor time today, including more than 50% of time in coordination of care during staffing meeting, and counseling patient. Physical Exam - Physical Exam General Appearance: WD/WN, alert, no apparent distress Respiratory: No respiratory distress, No accessory muscle use Skin: normal color, warm/dry Neuro/Psych: alert, normal mood/affect, oriented x 3, abnormal gait (With front wheeled walker, slow, mild ataxia with placement of left foot. Standby assist per Physical therapy.) ICD10 Worksheet Patient Problems: Problems Problem Status Onset CVA (cerebral vascular accident) Acute - ICD10 Problem Qualifiers (1) CVA (cerebral vascular accident)
[2017-08-09] MEDS: REFRESH PLUS EYE EACHEYE PRN (20:00)
[2017-08-09] MEDS: ATORVASTATIN CALCIUM 40 MG TAB PO SCH (20:03)
[2017-08-09] MEDS: CARBIDOPA/LEVO CR 25 MG/100 MG TAB PO SCH (20:03)
[2017-08-10] MEDS: HYDROCHLOROTHIAZIDE 25 MG TAB PO SCH (09:01)
[2017-08-10] MEDS: CHOLECALCIFEROL VIT D3 2,000 UNITS TAB/CAP PO SCH (09:01)
[2017-08-10] MEDS: ENOXAPARIN 40 MG/0.4 ML SYR SC SCH (09:01)
[2017-08-10] MEDS: ASPIRIN 325 MG TAB PO SCH (09:01)
[2017-08-10] MEDS: SODIUM CHLORIDE EACHEYE SCH ×4 (09:50→20:53)
--- NOTE | 2017-08-10 13:38 | SOAPPROG ---
SOAP Progress Note Assessment/Plan: Assessment: * Cerebrovascular accident, lacunar, with left christi ataxia and balance impairment. * Initial functional independence measure 71 on 08/02/2017; improved to 91 as of 08/09/2017. Standby assist to contact guard assist for mobility. Activities daily living standby assist except for independent with bathing. Has ambulated more than 150 ft. * Continue PT and OT to optimize mobility and activities of daily living toward the modified independent level. * Cognitive dysfunction. * deficits to working memory and divided attention. * Using a log book. * Continue METROLOGY SPECIALIST. * Secondary stroke prevention. Will continue blood pressure and lipid control. Aspirin 325 mg daily. * Hypertension. Blood pressures are elevated. Added amlodipine 2.5 mg at HS . Continue hydrochlorothiazide at 25 mg daily. * Blood pressures often above 140/90. Increase amlodipine to 5 mg at HS starting 08/08/2017. 118/66 this morning. 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 * Expect resolution over a period of weeks. * Initiated Sinemet CR, 25/100 at HS, 08/06/2017. Had no symptoms overnight. 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 Platelets slightly elevated at 468 on CBC 08/01/2017, increased to 684 on 08/05/2017. * Discussed with Dr. Duffy on 08/05/2017 (cell # [phone]). Advises weekly CBC; call him with result. Next blood draw at planned for 08/12/2017. * Dyslipidemia. Continue atorvastatin. * No anemia or iron deficiency on labs 08/01/2017. Discontinued ferrous sulfate starting 08/02/2017. 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 It is unlikely that they are clinically significant. * Aortic stenosis is also an incidental finding. She has not had any signs or symptoms of congestive heart failure. Her family reports that 2 years ago she won her age class at age 86 in the [facility], and she and her have been quite active. * Prophylaxis. She was treated with enoxaparin while in the hospital, and this will be continued until it is determined that she has adequate mobility for a reduced DVT risk. Additionally, she will have sequential compression devices on her legs when she is in bed at night. Followup. Per hospital discharge summary, she is to follow up with neurologist , Dr. Carranza in 6-8 weeks or mid to late September. She is to follow up with veterinary dentist, Dr. Duffy, the week of discharge from Inpatient Rehabilitation, and she is to follow up with primary care provider, Dr. Leidy Escobar after discharge from inpatient rehabilitation. Tentative discharge date of 08/16/2017, with home OT, PT and METROLOGY SPECIALIST. 08/09/17 14:43 Subjective: No complaints. Sleeps well. No fevers or chills, no cough or dyspnea. Objective: Plan: 08/10/17 13:36 08/10/17 13:38 Objective: Vital Signs Temp Pulse Resp BP Pulse Ox 36.6 C 68 14 118/66 93 08/10/17 11:25 08/10/17 11:25 08/10/17 11:25 08/10/17 11:25 08/10/17 11:25 Laboratory Results 08/05/17 06:30 08/01/17 06:10 08/09/17 08/10/17 08/11/17 05:59 05:59 05:59 Intake Total 1340 860 300 Output Total 1750 1550 Balance -410 -690 300 Physical Exam - Physical Exam General Appearance: alert, no apparent distress Respiratory: lungs clear Cardiac/Chest: regular rate, rhythm Skin: normal color, warm/dry Extremities: No pedal edema Neuro/Psych: abnormal gait, motor weakness, cognition abnormalities, other (no acut changes) ICD10 Worksheet Patient Problems: Problems Problem Status Onset CVA (cerebral vascular accident) Acute
[2017-08-10] MEDS: CARBIDOPA/LEVO CR 25 MG/100 MG TAB PO SCH (20:13)
[2017-08-10] MEDS: ATORVASTATIN CALCIUM 40 MG TAB PO SCH (20:13)
[2017-08-10] MEDS: REFRESH PLUS EYE EACHEYE PRN (20:13)
[2017-08-11] MEDS: CHOLECALCIFEROL VIT D3 2,000 UNITS TAB/CAP PO SCH (09:08)
[2017-08-11] MEDS: ASPIRIN 325 MG TAB PO SCH (09:08)
[2017-08-11] MEDS: SODIUM CHLORIDE EACHEYE SCH ×4 (09:09→21:22)
[2017-08-11] MEDS: HYDROCHLOROTHIAZIDE 25 MG TAB PO SCH (09:09)
[2017-08-11] MEDS: ENOXAPARIN 40 MG/0.4 ML SYR SC SCH (09:09)
--- NOTE | 2017-08-11 11:27 | SOAPPROG ---
SOAP Progress Note Assessment/Plan: Assessment: 87 YO female s/p CVA * Cerebrovascular accident, lacunar, with left christi ataxia and balance impairment. * Initial functional independence measure 71 on 08/02/2017; improved to 91 as of 08/09/2017. Standby assist to contact guard assist for mobility. Activities daily living standby assist except for independent with bathing. Has ambulated more than 150 ft. * Continue PT and OT to optimize mobility and activities of daily living toward the modified independent level. * Cognitive dysfunction. * deficits to working memory and divided attention. * Using a log book. * Continue APARTMENT HOUSE MANAGER. * Secondary stroke prevention. Will continue blood pressure and lipid control. Aspirin 325 mg daily. * Hypertension. 127/68 this morning. Continue hydrochlorothiazide 25 mg daily , and amlodipine 5 mg at HS starting 08/08/2017. * Blood pressures often above 140/90. 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 * Expect resolution over a period of weeks. * Initiated Sinemet CR, 25/100 at HS, 08/06/2017. Had no symptoms overnight. 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 Platelets slightly elevated at 468 on CBC 08/01/2017, increased to 684 on 08/05/2017. * Discussed with Dr. Duffy on 08/05/2017 (cell # [phone]). Advises weekly CBC; call him with result. Next blood draw at planned for 08/12/2017. * Dyslipidemia. Continue atorvastatin. * No anemia or iron deficiency on labs 08/01/2017. Discontinued ferrous sulfate starting 08/02/2017. 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 It is unlikely that they are clinically significant. * Aortic stenosis is also an incidental finding. She has not had any signs or symptoms of congestive heart failure. Her family reports that 2 years ago she won her age class at age 86 in the [facility], and she and her have been quite active. * Prophylaxis. She was treated with enoxaparin while in the hospital, and this will be continued until it is determined that she has adequate mobility for a reduced DVT risk. Additionally, she will have sequential compression devices on her legs when she is in bed at night. Followup. Per hospital discharge summary, she is to follow up with neurologist , Dr. Carranza in 6-8 weeks or mid to late September. She is to follow up with education spec, Dr. Dufyf, the week of discharge from Inpatient Rehabilitation, and she is to follow up with primary care provider, Dr. Leidy Escobar after discharge from inpatient rehabilitation. Tentative discharge date of 08/16/2017, with home OT, PT and APARTMENT HOUSE MANAGER. Subjective: No complaints. Sleeps well. No fevers/chills, chest pain, no cough or dyspnea. Objective: Plan: Cont Dr Griffin's rehab treatment plan 08/11/17 11:24 Objective: Vital Signs Temp Pulse Resp BP Pulse Ox 36.5 C 75 16 127/68 H 92 08/11/17 06:22 08/11/17 06:22 08/11/17 06:22 08/11/17 09:09 08/11/17 06:22 Laboratory Results 08/05/17 06:30 08/01/17 06:10 08/10/17 08/11/17 08/12/17 05:59 05:59 05:59 Intake Total 860 1500 270 Output Total 1550 200 Balance -690 1300 270 Physical Exam - Physical Exam General Appearance: alert, no apparent distress Neck: supple Respiratory: lungs clear Cardiac/Chest: regular rate, rhythm Skin: normal color, warm/dry Extremities: No pedal edema, No calf tenderness Neuro/Psych: alert, normal mood/affect, abnormal gait (balance improving), cognition abnormalities, other (no acute changes) ICD10 Worksheet Patient Problems: Problems Problem Status Onset CVA (cerebral vascular accident) Acute
[2017-08-11] MEDS: ATORVASTATIN CALCIUM 40 MG TAB PO SCH (20:46)
[2017-08-11] MEDS: CARBIDOPA/LEVO CR 25 MG/100 MG TAB PO SCH (20:47)
[2017-08-12 08:29] LABS: PLATELET COUNT 752 10^3/uL (150-400)
[2017-08-12] MEDS: ASPIRIN 325 MG TAB PO SCH (08:31)
[2017-08-12] MEDS: CHOLECALCIFEROL VIT D3 2,000 UNITS TAB/CAP PO SCH (08:32)
[2017-08-12] MEDS: ENOXAPARIN 40 MG/0.4 ML SYR SC SCH (08:51)
[2017-08-12] MEDS: HYDROCHLOROTHIAZIDE 25 MG TAB PO SCH (08:53)
[2017-08-12] MEDS: SODIUM CHLORIDE EACHEYE SCH ×4 (09:03→20:47)
--- NOTE | 2017-08-12 15:05 | SOAPPROG ---
SOAP Progress Note Assessment/Plan: Assessment: * Cerebrovascular accident, lacunar, to the right barksdale radiata, with left upper and lower extremity ataxia and balance impairment. * Initial functional independence measure 71 on 08/02/2017; improved to 91 as of 08/09/2017. Standby assist to contact guard assist for mobility. Activities daily living standby assist except for independent with bathing. Has ambulated more than 150 ft. * Continue PT and OT to optimize mobility and activities of daily living toward the modified independent level. * Cognitive dysfunction. * Noted to have deficits to working memory and divided attention. * Using a log book. * Continue MEMBER SERVICES REPRESENTATIVE. * Secondary stroke prevention. Will continue blood pressure and lipid control. Aspirin has been increased from 81 mg to 325 mg daily. * Hypertension. Blood pressures were elevated. Added amlodipine 2.5 mg at HS . Continue hydrochlorothiazide at 25 mg daily. * Well controlled after increase of amlodipine to 5 mg at HS starting 08/08/2017. 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 * Expect resolution over a period of weeks. * Initiated Sinemet CR, 25/100 at HS, 08/06/2017. Had no symptoms overnight. Advise trial of discontinuation after 08/26/2017. 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 Platelets slightly elevated at 468 on CBC 08/01/2017, increased to 684 on 08/05/2017. * Discussed with Dr. Duffy on 08/05/2017 (cell # [phone]). Advises weekly CBC; call him with result. * Platelets 752 on 08/12/2017. Dr. Garcia recommends initiating peg awaited interferon alpha and 45 mcg q.week. She can follow up with Dr. Duffy on 2017 to recheck CBC and provide additional dosing if needed. * Dyslipidemia. Continue atorvastatin. * No anemia or iron deficiency on labs 08/01/2017. Discontinued ferrous sulfate starting 08/02/2017. 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 It is unlikely that they are clinically significant. * Aortic stenosis is also an incidental finding. She has not had any signs or symptoms of congestive heart failure. Her family reports that 2 years ago she won her age class at age 86 in the [facility], and she and her have been quite active. * Prophylaxis. She was treated with enoxaparin while in the hospital, and this will be continued until it is determined that she has adequate mobility for a reduced DVT risk. Additionally, she will have sequential compression devices on her legs when she is in bed at night. Followup. Per hospital discharge summary, she is to follow up with neurologist , Dr. Carranza in 6-8 weeks or mid to late September. She is to follow up with unloader, Dr. Duffy, on 08/19/2017, and she is to follow up with primary care provider, Dr. Leidy Escobar after discharge from inpatient rehabilitation. Has been living with her long-term partner; she does driving and other visually related tasks as he has visual impairment due to macular degeneration, but is otherwise self sufficient. She she values her independence highly and intends to return home with her partner. She will need to be able to climb and descend stairs safely. She may have to accept assistance in the home. Tentative discharge date of 08/16/2017. Will have home OT, PT and MEMBER SERVICES REPRESENTATIVE. 08/12/17 15:06 Subjective: Reports insomnia. After she awakens to urinate during the night she is unable to get back to sleep for awhile. She thinks lack of sleep is clouding her thinking and interfering with her work with MEMBER SERVICES REPRESENTATIVE. She reports she has some worries about how she and her partner will get by after she goes home, as he has low vision and neither of them will be driving. Otherwise doing well, no fevers or chills, no cough or dyspnea, not in pain. Denies involuntary leg movements overnight. Objective: Vital Signs Temp Pulse Resp BP Pulse Ox 36.4 C 64 16 127/65 H 92 08/12/17 06:21 08/12/17 06:21 08/12/17 06:21 08/12/17 08:53 08/12/17 06:21 Laboratory Results 08/12/17 06:00 08/01/17 06:10 08/11/17 08/12/17 08/13/17 05:59 05:59 05:59 Intake Total 1500 1200 600 Output Total 200 1025 600 Balance 1300 175 0 Physical Exam - Physical Exam General Appearance: WD/WN, alert, no apparent distress Respiratory: normal breath sounds, No crackles, No rhonchi, No wheezing Cardiac/Chest: regular rate, rhythm, No edema, No diastolic murmur, No systolic murmur Skin: normal color, warm/dry Neuro/Psych: alert, normal mood/affect, oriented x 3 ICD10 Worksheet Patient Problems: Problems Problem Status Onset CVA (cerebral vascular accident) Acute - ICD10 Problem Qualifiers (1) CVA (cerebral vascular accident)
[2017-08-12] MEDS ORDERED: PEGINTERFERON ALFA SC ONE (18:00)
[2017-08-12] MEDS: traZODone 50 MG TAB PO SCH (20:45)
[2017-08-12] MEDS: ATORVASTATIN CALCIUM 40 MG TAB PO SCH (20:45)
[2017-08-12] MEDS: CARBIDOPA/LEVO CR 25 MG/100 MG TAB PO SCH (20:45)
[2017-08-13] MEDS: HYDROCHLOROTHIAZIDE 25 MG TAB PO SCH (08:23)
[2017-08-13] MEDS: CHOLECALCIFEROL VIT D3 2,000 UNITS TAB/CAP PO SCH (08:25)
[2017-08-13] MEDS: ASPIRIN 325 MG TAB PO SCH (08:25)
[2017-08-13] MEDS: SODIUM CHLORIDE EACHEYE SCH ×4 (08:26→20:11)
[2017-08-13] MEDS: ENOXAPARIN 40 MG/0.4 ML SYR SC SCH (09:34)
--- NOTE | 2017-08-13 11:00 | SOAPPROG ---
SOAP Progress Note Assessment/Plan: 87-year-old woman status post stroke, lacunar comma to the right barksdale radiata with left upper and lower extremity ataxia and balance impairment. Today's update: She slept very well with the added trazodone, feels somewhat groggy today. I anticipate that this will improve and we will monitor this issue. She is receiving her 1st dose of interferon alpha today, monitoring for response and side effects, given for essential thrombocytosis. Participating well in therapies, no other issues getting in the way of her progress. This patient is new to me and all her medical issues are new as well. A total of 25 min was spent on the floor in the care of the patient, the majority of which was spent counseling and coordination of care regarding sleep issues, dosing of new medication. Hypertension is managed well on present doses. Additional issues reviewed but without change include secondary stroke prevention, restless legs syndrome, dyslipidemia, cerebrovascular aneurysms, aortic stenosis, and prophylaxis. Tentative discharge is for 08/16/2017 with home OT, PT, and RELAY MECHANIC. 08/13/17 10:57 Subjective: Chief complaint: Insomnia No acute events overnight. Patient endorses that she slept much better on trazodone, slightly groggy today. No issues sleeping last night. She is receiving her 1st dose of interferon alpha today for essential thrombocytosis. Nursing provided her with additional information regarding potential side effects. She has not taken his medication before. No shortness of breath or chest pain, no new numbness, tingling, or weakness. Objective: Vital Signs Temp Pulse Resp BP Pulse Ox 36.3 C 71 16 110/61 90 L 08/13/17 06:18 08/13/17 06:18 08/13/17 06:18 08/13/17 08:23 08/13/17 06:18 Laboratory Results 08/12/17 06:00 08/01/17 06:10 08/12/17 08/13/17 08/14/17 05:59 05:59 05:59 Intake Total 1200 1240 360 Output Total 1025 800 Balance 175 440 360 Physical Exam - Physical Exam General Appearance: WD/WN, alert, no apparent distress EENT: No scleral icterus (R), No scleral icterus (L) Respiratory: lungs clear, normal breath sounds, No respiratory distress, No accessory muscle use, No decreased breath sounds, No rales, No rhonchi, No wheezing Cardiac/Chest: normal peripheral pulses, regular rate, rhythm, No edema, No diastolic murmur, No systolic murmur Skin: normal color, warm/dry, No cyanosis, No diaphoresis Extremities: No pedal edema, No swelling Neuro/Psych: alert, normal mood/affect, oriented x 3, other (Decreased rapid alternating movements on the left upper limb) ICD10 Worksheet Patient Problems: Problems Problem Status Onset CVA (cerebral vascular accident) Acute
[2017-08-13] MEDS ORDERED: PEGINTERFERON ALFA SC ONE (13:00)
[2017-08-13] MEDS: traZODone 50 MG TAB PO SCH (20:09)
[2017-08-13] MEDS: CARBIDOPA/LEVO CR 25 MG/100 MG TAB PO SCH (20:10)
[2017-08-13] MEDS: ATORVASTATIN CALCIUM 40 MG TAB PO SCH (20:10)
[2017-08-14] MEDS: CHOLECALCIFEROL VIT D3 2,000 UNITS TAB/CAP PO SCH (08:07)
[2017-08-14] MEDS: ASPIRIN 325 MG TAB PO SCH (08:07)
[2017-08-14] MEDS: ENOXAPARIN 40 MG/0.4 ML SYR SC SCH (08:07)
[2017-08-14] MEDS: SODIUM CHLORIDE EACHEYE SCH ×4 (08:08→21:49)
[2017-08-14] MEDS: HYDROCHLOROTHIAZIDE 25 MG TAB PO SCH (08:09)
--- NOTE | 2017-08-14 14:34 | SOAPPROG ---
SOAP Progress Note Assessment/Plan: Assessment: * Cerebrovascular accident, lacunar, to the right barksdale radiata, with left upper and lower extremity ataxia and balance impairment. * Initial functional independence measure 71 on 08/02/2017; improved to 91 as of 08/09/2017, and to 94 as of 08/14/2017. Standby assist with front wheeled walker for transfers, walks with standby assist and front wheeled walker but can need contact guard assist for bot balance when turning. Timed epi timed get up and go test was 28.5 sec. She has ascended and descended 18 stairs with 1 rail and contact guard assist. She is negotiated a curb step with a front wheeled walker and contact guard assist she is noted to have decreased memory for safety she is advancing to independent in room over the next few days. Grooming and hygiene are done seated with modified independence or standing with standby assist upper body dressing is independent, lower body dressing requires distance supervision. Toilet and shower transfers are done with standby assist, bathing with supervision, and toileting with standby assist she did a meal prep for which she required cuing regarding safe mobility but otherwise was safe in the kitchen. * Has ambulated more than 150 ft. * Continue PT and OT to optimize mobility and activities of daily living toward the modified independent level. * Cognitive dysfunction. * Noted to have deficits to working memory and divided attention, and to have reduced insight and mental flexibility she has 10-20% error rate on details on simulated medication and bill paying activities.. * Using a log book. * Continue CONFIGURATION MANAGEMENT ADVISOR. * Secondary stroke prevention. Will continue blood pressure and lipid control. Aspirin has been increased from 81 mg to 325 mg daily. * Hypertension. Blood pressures were elevated. Added amlodipine 2.5 mg at HS . Continue hydrochlorothiazide at 25 mg daily. * Well controlled after increase of amlodipine to 5 mg at HS starting 08/08/2017. 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 * Expect resolution over a period of weeks. * Initiated Sinemet CR, 25/100 at HS, 08/06/2017. Had no symptoms overnight. Advise trial of discontinuation after 08/26/2017. 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 Platelets slightly elevated at 468 on CBC 08/01/2017, increased to 684 on 08/05/2017. * Discussed with Dr. Duffy on 08/05/2017 (cell # [phone]). Advises weekly CBC; call him with result. * Platelets 752 on 08/12/2017. Dr. Garcia recommends initiating peg awaited interferon alpha and 45 mcg q.week; had 1st dose on 08/13/2017. She can follow up with Dr. Duffy after discharge. Recheck CBC on 08/19/2017. * Dyslipidemia. Continue atorvastatin. * No anemia or iron deficiency on labs 08/01/2017. Discontinued ferrous sulfate starting 08/02/2017. 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 It is unlikely that they are clinically significant. * Aortic stenosis is also an incidental finding. She has not had any signs or symptoms of congestive heart failure. Her family reports that 2 years ago she won her age class at age 86 in the [facility], and she and her have been quite active. * Prophylaxis. She was treated with enoxaparin while in the hospital. Mobility is improved and she is ambulating more than 150 ft multiple times a day. Discontinuing enoxaparin 08/14/2017. Followup. Per hospital discharge summary, she is to follow up with neurologist , Dr. Carranza in 6-8 weeks or mid to late September. She is to follow up with coat joiner, Dr. Duffy, on 08/26/2017, and she is to follow up with primary care provider, Dr. Leidy Escobar after discharge from inpatient rehabilitation. Follow-up CT angiogram regarding cerebral aneurysms on approximately 01/25/2018. Follow-up echocardiogram regarding mild aortic stenosis in approximately 1 year. Attended staffing, 15 min. Discussed with case management, dietitian, nursing, PT, OT, CONFIGURATION MANAGEMENT ADVISOR. Attended family conference, 30 min, long-term partner and his daughter present. Has been living with her long-term partner; she has done driving and other visually related tasks as he has visual impairment due to macular degeneration, but is otherwise self sufficient. She values her independence highly and intends to return home with her partner. She will need to be able to climb and descend stairs safely. Assistance at home is strongly recommended at least for the 1st few days. Tentative discharge date of 2017. Will have home OT, PT and CONFIGURATION MANAGEMENT ADVISOR. 08/14/17 14:25 Subjective: No complaints today. Feels like she is moving better. Slept well. Objective: Vital Signs Temp Pulse Resp BP Pulse Ox 36.6 C 81 16 111/60 93 08/14/17 06:36 08/14/17 06:36 08/14/17 06:36 08/14/17 08:09 08/14/17 06:36 Laboratory Results 08/12/17 06:00 08/01/17 06:10 08/13/17 08/14/17 08/15/17 05:59 05:59 05:59 Intake Total 1240 1430 600 Output Total 800 Balance 440 1430 600 - Time Spent With Patient Time Spent With Patient: Greater than 35 min floor time today, including more than 50% of time in coordination of care during staffing meeting, and counseling patient and family during family conference. Physical Exam - Physical Exam General Appearance: WD/WN, alert, no apparent distress Respiratory: No respiratory distress, No accessory muscle use Skin: normal color, warm/dry Neuro/Psych: alert, normal mood/affect, oriented x 3, abnormal gait (Slow, slightly wide based, with front wheeled walker, accompanied by physical therapist.) ICD10 Worksheet Patient Problems: Problems Problem Status Onset CVA (cerebral vascular accident) Acute - ICD10 Problem Qualifiers (1) CVA (cerebral vascular accident)
[2017-08-14] MEDS: CARBIDOPA/LEVO CR 25 MG/100 MG TAB PO SCH (21:48)
[2017-08-14] MEDS: ATORVASTATIN CALCIUM 40 MG TAB PO SCH (21:48)
[2017-08-14] MEDS: traZODone 50 MG TAB PO SCH (21:49)
[2017-08-15] MEDS: CHOLECALCIFEROL VIT D3 2,000 UNITS TAB/CAP PO SCH (08:29)
[2017-08-15] MEDS: HYDROCHLOROTHIAZIDE 25 MG TAB PO SCH (08:29)
[2017-08-15] MEDS: ASPIRIN 325 MG TAB PO SCH (08:29)
[2017-08-15] MEDS: SODIUM CHLORIDE EACHEYE SCH ×4 (09:11→20:37)
--- NOTE | 2017-08-15 13:23 | SOAPPROG ---
SOAP Progress Note Assessment/Plan: 87-year-old woman status post stroke, lacunar comma to the right barksdale radiata with left upper and lower extremity ataxia and balance impairment. Today's update: Continuing to participate well in therapies, no concerns. She continues to feel somewhat groggy on trazodone at 25 mg p. O. At bedtime, decreased to half the dose after discussion with her. She can refuse if she would like to. Tolerating interferon alpha well. Additional issues reviewed but without change include secondary stroke prevention, restless legs syndrome, dyslipidemia, cerebrovascular aneurysms, aortic stenosis, and prophylaxis. Tentative discharge is for 08/20/2017 with home OT, PT, and FERRULER. Please refer to prior notes for follow-up. 08/13/17 10:57 08/15/17 13:20 Subjective: Chief complaint: Insomnia No acute events overnight. Patient endorses that she still somewhat groggy in the morning though she is sleeping well. She would like to stop medication for sleep. I discussed with her the possibility of decreasing the dose in half or offering it as needed, she agreed that cutting the dose in half and having it brought to her is reasonable and she can refuse if she would like. No shortness of breath or chest pain, no new numbness, tingling, or weakness. She feels like things are progressing well and she is looking forward to discharging home. Objective: Vital Signs Temp Pulse Resp BP Pulse Ox 36.5 C 88 18 138/78 H 94 08/15/17 08:00 08/15/17 08:00 08/15/17 08:00 08/15/17 08:29 08/15/17 08:00 Laboratory Results 08/12/17 06:00 08/01/17 06:10 08/14/17 08/15/17 08/16/17 05:59 05:59 05:59 Intake Total 1430 840 390 Balance 1430 840 390 Physical Exam - Physical Exam General Appearance: WD/WN, alert, no apparent distress EENT: No scleral icterus (R), No scleral icterus (L) Respiratory: No respiratory distress, No accessory muscle use Cardiac/Chest: normal peripheral pulses, regular rate, rhythm Skin: normal color, warm/dry, No cyanosis, No diaphoresis Extremities: No pedal edema, No swelling Neuro/Psych: alert, normal mood/affect, oriented x 3 ICD10 Worksheet Patient Problems: Problems Problem Status Onset CVA (cerebral vascular accident) Acute
[2017-08-15] MEDS: ATORVASTATIN CALCIUM 40 MG TAB PO SCH (20:37)
[2017-08-15] MEDS: CARBIDOPA/LEVO CR 25 MG/100 MG TAB PO SCH (20:37)
[2017-08-15] MEDS: traZODone 50 MG TAB PO SCH ×2 (20:37→21:00)
[2017-08-16] MEDS: SODIUM CHLORIDE EACHEYE SCH ×4 (07:48→21:34)
[2017-08-16] MEDS: ASPIRIN 325 MG TAB PO SCH (07:51)
[2017-08-16] MEDS: CHOLECALCIFEROL VIT D3 2,000 UNITS TAB/CAP PO SCH (07:51)
[2017-08-16] MEDS: HYDROCHLOROTHIAZIDE 25 MG TAB PO SCH (07:51)
--- NOTE | 2017-08-16 14:06 | SOAPPROG ---
SOAP Progress Note Assessment/Plan: Assessment: * Cerebrovascular accident, lacunar, to the right barksdale radiata, with left upper and lower extremity ataxia and balance impairment. * Initial functional independence measure 71 on 08/02/2017; improved to 91 as of 08/09/2017, and to 94 as of 08/14/2017. Standby assist with front wheeled walker for transfers, walks with standby assist and front wheeled walker but can need contact guard assist for bot balance when turning. Timed epi timed get up and go test was 28.5 sec. She has ascended and descended 18 stairs with 1 rail and contact guard assist. She is negotiated a curb step with a front wheeled walker and contact guard assist she is noted to have decreased memory for safety she is advancing to independent in room over the next few days. Grooming and hygiene are done seated with modified independence or standing with standby assist upper body dressing is independent, lower body dressing requires distance supervision. Toilet and shower transfers are done with standby assist, bathing with supervision, and toileting with standby assist she did a meal prep for which she required cuing regarding safe mobility but otherwise was safe in the kitchen. * Has ambulated more than 150 ft. * Continue PT and OT to optimize mobility and activities of daily living toward the modified independent level. * Cognitive dysfunction. * Noted to have deficits to working memory and divided attention, and to have reduced insight and mental flexibility she has 10-20% error rate on details on simulated medication and bill paying activities.. * Using a log book. * Continue FIRST AID NURSE. * Secondary stroke prevention. Will continue blood pressure and lipid control. Aspirin has been increased from 81 mg to 325 mg daily. * Hypertension. BLOOD PRESSURE ELEVATED TODAY AT 152/91. WILL ASK NURSING TO REPEAT THIS AND IF IT IS AGAIN ELEVATED THEN MAY GIVE A ADDITIONAL DOSAGE OF EITHER AMLODIPINE OR HYDROCHLOROTHIAZIDE. 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 * Expect resolution over a period of weeks. * Initiated Sinemet CR, 25/100 at HS, 08/06/2017. Had no symptoms overnight. Advise trial of discontinuation after 08/26/2017. 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 Platelets slightly elevated at 468 on CBC 08/01/2017, increased to 684 on 08/05/2017. * Discussed with Dr. Duffy on 08/05/2017 (cell # [phone]). Advises weekly CBC; call him with result. * Platelets 752 on 08/12/2017. Dr. Garcia recommends initiating peg awaited interferon alpha and 45 mcg q.week; had 1st dose on 08/13/2017. She can follow up with Dr. Duffy after discharge. Recheck CBC on 08/19/2017. * Dyslipidemia. Continue atorvastatin. * No anemia or iron deficiency on labs 08/01/2017. Discontinued ferrous sulfate starting 08/02/2017. 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 It is unlikely that they are clinically significant. * Aortic stenosis is also an incidental finding. She has not had any signs or symptoms of congestive heart failure. Her family reports that 2 years ago she won her age class at age 86 in the [facility], and she and her have been quite active. * Prophylaxis. She was treated with enoxaparin while in the hospital. Mobility is improved and she is ambulating more than 150 ft multiple times a day. Discontinuing enoxaparin 08/14/2017. Followup. Per hospital discharge summary, she is to follow up with neurologist , Dr. Carranza in 6-8 weeks or mid to late September. She is to follow up with hr advisor, Dr. Duffy, on 08/26/2017, and she is to follow up with primary care provider, Dr. Leidy Escobar after discharge from inpatient rehabilitation. Follow-up CT angiogram regarding cerebral aneurysms on approximately 01/25/2018. Follow-up echocardiogram regarding mild aortic stenosis in approximately 1 year. 08/16/17 14:07 Subjective: SHE REPORTS SHE CONTINUES TO HAVE INTERMITTENT LEG SPASMS AT NIGHT. SHE IS AMBULATING 100-150 FEET WITH FWW AND REPORTS SOME DECREASED BALANCE WITH THIS Objective: Vital Signs Temp Pulse Resp BP Pulse Ox 36.4 C 84 12 152/91 H 95 08/16/17 06:47 08/16/17 06:47 08/16/17 06:47 08/16/17 06:47 08/16/17 06:47 Laboratory Results 08/12/17 06:00 08/01/17 06:10 08/15/17 08/16/17 08/17/17 05:59 05:59 05:59 Intake Total 840 723 600 Balance 840 827 600 Physical Exam - Physical Exam General Appearance: WD/WN, alert, no apparent distress Neck: supple Respiratory: lungs clear, normal breath sounds Cardiac/Chest: No edema Abdomen: non-tender, soft Neuro/Psych: normal mood/affect, oriented x 3, No speech abnormalities ICD10 Worksheet Patient Problems: Problems Problem Status Onset CVA (cerebral vascular accident) Acute
[2017-08-16] MEDS: ATORVASTATIN CALCIUM 40 MG TAB PO SCH (21:27)
[2017-08-16] MEDS: CARBIDOPA/LEVO CR 25 MG/100 MG TAB PO SCH (21:27)
[2017-08-16] MEDS: ACETAMINOPHEN 325 MG TAB PO PRN (21:29)
[2017-08-16] MEDS: traZODone 50 MG TAB PO SCH (21:35)
[2017-08-17] MEDS: SODIUM CHLORIDE EACHEYE SCH ×4 (07:57→20:06)
[2017-08-17] MEDS: CHOLECALCIFEROL VIT D3 2,000 UNITS TAB/CAP PO SCH (07:57)
[2017-08-17] MEDS: HYDROCHLOROTHIAZIDE 25 MG TAB PO SCH (07:58)
[2017-08-17] MEDS: ASPIRIN 325 MG TAB PO SCH (07:58)
--- NOTE | 2017-08-17 10:54 | SOAPPROG ---
SOAP Progress Note Assessment/Plan: Assessment/Plan: Ms. Santos is an 87 y/o female with a recent CVA. Doing well on the acute rehab service and making great improvements * Cerebrovascular accident, lacunar, to the right barksdale radiata, with left upper and lower extremity ataxia and balance impairment. * Initial functional independence measure 71 on 08/02/2017; improved to 91 as of 08/09/2017, and to 94 as of 08/14/2017. Standby assist with front wheeled walker for transfers, walks with standby assist and front wheeled walker but can need contact guard assist for bot balance when turning. Timed epi timed get up and go test was 28.5 sec. She has ascended and descended 18 stairs with 1 rail and contact guard assist. She is negotiated a curb step with a front wheeled walker and contact guard assist she is noted to have decreased memory for safety she is advancing to independent in room over the next few days. Grooming and hygiene are done seated with modified independence or standing with standby assist upper body dressing is independent, lower body dressing requires distance supervision. Toilet and shower transfers are done with standby assist, bathing with supervision, and toileting with standby assist she did a meal prep for which she required cuing regarding safe mobility but otherwise was safe in the kitchen. * Has ambulated more than 150 ft. * Continue PT and OT to optimize mobility and activities of daily living toward the modified independent level. * Cognitive dysfunction. * Noted to have deficits to working memory and divided attention, and to have reduced insight and mental flexibility she has 10-20% error rate on details on simulated medication and bill paying activities.. * Using a log book. * Continue WET SILK HANGER. * Secondary stroke prevention. Will continue blood pressure and lipid control. Aspirin has been increased from 81 mg to 325 mg daily. * Hypertension. Continue hydrochlorothiazide at 25 mg daily. Given intermittent elevations will increase amlodipine to 7.5mg on 08/17. 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 * Expect resolution over a period of weeks. * Initiated Sinemet CR, 25/100 at HS, 08/06/2017. Had no symptoms overnight. Advise trial of discontinuation after 08/26/2017. 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 Platelets slightly elevated at 468 on CBC 08/01/2017, increased to 634 on 08/05/2017, to 752 on 08/12 * Discussed with Dr. Duffy on 08/05/2017 (cell # [phone]). Advises weekly CBC; call him with result. * Platelets 752 on 08/12/2017. Dr. Garcia recommends initiating peg awaited interferon alpha and 45 mcg q.week; had 1st dose on 08/13/2017. She can follow up with Dr. Duffy after discharge. Recheck CBC on 08/19/2017. * Pt curious about her response to the medications - Will check platelet today 08/17 * Dyslipidemia. Continue atorvastatin. * No anemia or iron deficiency on labs 08/01/2017. Discontinued ferrous sulfate starting 08/02/2017. 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 It is unlikely that they are clinically significant. * Aortic stenosis is also an incidental finding. She has not had any signs or symptoms of congestive heart failure. Her family reports that 2 years ago she won her age class at age 86 in the [facility], and she and her have been quite active. * Prophylaxis. She was treated with enoxaparin while in the hospital. Mobility is improved and she is ambulating more than 150 ft multiple times a day. Discontinuing enoxaparin 08/14/2017. Followup. Per hospital discharge summary, she is to follow up with neurologist , Dr. Carranza in 6-8 weeks or mid to late September. She is to follow up with director audience marketing, Dr. Duffy, on 08/26/2017, and she is to follow up with primary care provider, Dr. Leidy Escobar after discharge from inpatient rehabilitation. Follow-up CT angiogram regarding cerebral aneurysms on approximately 01/25/2018. Follow-up echocardiogram regarding mild aortic stenosis in approximately 1 year. 08/17/17 10:56 08/17/17 10:57 Subjective: No new concerns today. No new fevers/chills, no sob nor CP. Pt asking if we can recheck her Plts to see the response she is having to the recent medications she received. Objective: Vital Signs Temp Pulse Resp BP Pulse Ox 36.5 C 76 14 142/80 H 91 L 08/17/17 07:54 08/17/17 07:54 08/17/17 07:54 08/17/17 07:54 08/17/17 07:54 Laboratory Results 08/12/17 06:00 08/01/17 06:10 08/16/17 08/17/17 08/18/17 05:59 05:59 05:59 Intake Total 630 840 340 Balance 630 840 340 Physical Exam - Physical Exam General Appearance: alert, no apparent distress EENT: other (mmm) Neck: non-tender Respiratory: lungs clear, normal breath sounds Cardiac/Chest: normal peripheral pulses Abdomen: non-tender, soft Skin: normal color Neuro/Psych: alert, normal mood/affect ICD10 Worksheet Patient Problems: Problems Problem Status Onset CVA (cerebral vascular accident) Acute
[2017-08-17] MEDS: ATORVASTATIN CALCIUM 40 MG TAB PO SCH (20:01)
[2017-08-17] MEDS: CARBIDOPA/LEVO CR 25 MG/100 MG TAB PO SCH (20:02)
[2017-08-17] MEDS: REFRESH PLUS EYE EACHEYE PRN (20:04)
[2017-08-17] MEDS: traZODone 50 MG TAB PO SCH (20:06)
[2017-08-18] MEDS: SODIUM CHLORIDE EACHEYE SCH ×4 (07:37→21:10)
[2017-08-18] MEDS: ASPIRIN 325 MG TAB PO SCH (07:38)
[2017-08-18] MEDS: HYDROCHLOROTHIAZIDE 25 MG TAB PO SCH (07:38)
[2017-08-18] MEDS: CHOLECALCIFEROL VIT D3 2,000 UNITS TAB/CAP PO SCH (07:38)
--- NOTE | 2017-08-18 10:31 | SOAPPROG ---
SOAP Progress Note Assessment/Plan: Assessment/Plan: Ms. Santos is an 87 y/o female with a recent CVA. Doing well on the acute rehab service and making great improvements * Cerebrovascular accident, lacunar, to the right barksdale radiata, with left upper and lower extremity ataxia and balance impairment. * Initial functional independence measure 71 on 08/02/2017; improved to 91 as of 08/09/2017, and to 94 as of 08/14/2017. Standby assist with front wheeled walker for transfers, walks with standby assist and front wheeled walker but can need contact guard assist for bot balance when turning. Timed epi timed get up and go test was 28.5 sec. She has ascended and descended 18 stairs with 1 rail and contact guard assist. She is negotiated a curb step with a front wheeled walker and contact guard assist she is noted to have decreased memory for safety she is advancing to independent in room over the next few days. Grooming and hygiene are done seated with modified independence or standing with standby assist upper body dressing is independent, lower body dressing requires distance supervision. Toilet and shower transfers are done with standby assist, bathing with supervision, and toileting with standby assist she did a meal prep for which she required cuing regarding safe mobility but otherwise was safe in the kitchen. * Has ambulated more than 150 ft. * Continue PT and OT to optimize mobility and activities of daily living toward the modified independent level. * Cognitive dysfunction. * Noted to have deficits to working memory and divided attention, and to have reduced insight and mental flexibility she has 10-20% error rate on details on simulated medication and bill paying activities.. * Using a log book. * Continue CREPE MAKER. * Secondary stroke prevention. Will continue blood pressure and lipid control. Aspirin has been increased from 81 mg to 325 mg daily. * Hypertension. Continue hydrochlorothiazide at 25 mg daily. Given intermittent elevations will increase amlodipine to 7.5mg on 08/17. 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 * Expect resolution over a period of weeks. * Initiated Sinemet CR, 25/100 at HS, 08/06/2017. Had no symptoms overnight. Advise trial of discontinuation after 08/26/2017. 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 Platelets slightly elevated at 468 on CBC 08/01/2017, increased to 634 on 08/05/2017, to 752 on 08/12 * Discussed with Dr. Duffy on 08/05/2017 (cell # [phone]). Advises weekly CBC; call him with result. * Platelets 752 on 08/12/2017. Dr. Garcia recommends initiating peg awaited interferon alpha and 45 mcg q.week; had 1st dose on 08/13/2017. She can follow up with Dr. Duffy after discharge. Recheck CBC on 08/19/2017. * Pt curious about her response to the medications - Plts improved to 631 on * Dyslipidemia. Continue atorvastatin. * No anemia or iron deficiency on labs 08/01/2017. Discontinued ferrous sulfate starting 08/02/2017. 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 It is unlikely that they are clinically significant. * Aortic stenosis is also an incidental finding. She has not had any signs or symptoms of congestive heart failure. Her family reports that 2 years ago she won her age class at age 86 in the [facility], and she and her have been quite active. * Prophylaxis. She was treated with enoxaparin while in the hospital. Mobility is improved and she is ambulating more than 150 ft multiple times a day. Discontinuing enoxaparin 08/14/2017. Followup. Per hospital discharge summary, she is to follow up with neurologist , Dr. Carranza in 6-8 weeks or mid to late September. She is to follow up with gastroenterologist, Dr. Duffy, on 08/26/2017, and she is to follow up with primary care provider, Dr. Leidy Escobar after discharge from inpatient rehabilitation. Follow-up CT angiogram regarding cerebral aneurysms on approximately 01/25/2018. Follow-up echocardiogram regarding mild aortic stenosis in approximately 1 year. 08/18/17 10:29 08/18/17 10:30 Subjective: Doing well today - happy about her upcoming d/c. We discussed her result from the plt labs drawn yesterday. She was very happy to hear that it had already responded to the medication. No new concerns today. No SOB/CP Objective: Vital Signs Temp Pulse Resp BP Pulse Ox 36.8 C 80 17 134/83 H 94 08/18/17 07:35 08/18/17 07:35 08/18/17 07:35 08/18/17 07:35 08/18/17 07:35 Laboratory Results 08/17/17 10:55 08/01/17 06:10 08/17/17 08/18/17 08/19/17 05:59 05:59 05:59 Intake Total 840 1230 160 Balance 840 1230 160 Physical Exam - Physical Exam General Appearance: alert, no apparent distress EENT: other (mmm) Respiratory: lungs clear, normal breath sounds Cardiac/Chest: regular rate, rhythm Abdomen: non-tender, soft Skin: normal color Neuro/Psych: alert, normal mood/affect ICD10 Worksheet Patient Problems: Problems Problem Status Onset CVA (cerebral vascular accident) Acute
[2017-08-18] MEDS: ATORVASTATIN CALCIUM 40 MG TAB PO SCH (21:06)
[2017-08-18] MEDS: CARBIDOPA/LEVO CR 25 MG/100 MG TAB PO SCH (21:06)
[2017-08-18] MEDS: traZODone 50 MG TAB PO SCH (22:51)
[2017-08-19] MEDS: SODIUM CHLORIDE EACHEYE SCH ×4 (07:57→21:07)
[2017-08-19] MEDS: ASPIRIN 325 MG TAB PO SCH (07:57)
[2017-08-19] MEDS: HYDROCHLOROTHIAZIDE 25 MG TAB PO SCH (07:57)
[2017-08-19] MEDS: CHOLECALCIFEROL VIT D3 2,000 UNITS TAB/CAP PO SCH (07:57)
[2017-08-19 08:12] LABS: PLATELET COUNT 605 10^3/uL (150-400)
--- NOTE | 2017-08-19 13:46 | PDOREHIP ---
Admission [facility] - Admission - 3 Day Assessment Period Admission Date/Day 1: 07/31/17 Day 2: 08/01/17 Day 3: 08/02/17 Discharge [facility] - Discharge - 3 Day Assessment Period 2 Days Prior to Anticipated Discharge Date: 08/18/17 1 Day Prior to Anticipated Discharge Date: 08/19/17 Anticipated Discharge Date: 08/20/17 - Discharge Skin Conditions Unhealed Pressure Ulcer (1 or more/Stage 1 or >)-Discharge: 0. No
[2017-08-19] MEDS: CARBIDOPA/LEVO CR 25 MG/100 MG TAB PO SCH (21:06)
[2017-08-19] MEDS: ATORVASTATIN CALCIUM 40 MG TAB PO SCH (21:06)
[2017-08-19] MEDS: traZODone 50 MG TAB PO SCH (22:03)
[2017-08-20] MEDS: CHOLECALCIFEROL VIT D3 2,000 UNITS TAB/CAP PO SCH (08:34)
[2017-08-20] MEDS: ASPIRIN 325 MG TAB PO SCH (08:34)
[2017-08-20] MEDS: HYDROCHLOROTHIAZIDE 25 MG TAB PO SCH (08:34)
[2017-08-20 08:39] VITALS: BP 120/66
[2017-08-20] MEDS: SODIUM CHLORIDE EACHEYE SCH ×2 (08:55→12:54)
[2017-08-20] MEDS ORDERED: PEGINTERFERON ALFA SC ONE (13:00)
[2017-08-20] MEDS ORDERED: PEGINTERFERON ALFA SC SCH (13:26)
--- NOTE | 2017-08-20 17:21 | GDS ---
[f rep st] DISCHARGE SUMMARY ADMITTING DIAGNOSIS: Cerebrovascular accident to the right [place] radiata with left upper and lower extremity ataxia and balance impairment. 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 OTHER DISCHARGE DIAGNOSES: Hypertension, periodic limb movements of sleep as complication of subcortical cerebrovascular accident, essential thrombocytosis, incidental findings of cerebrovascular aneurysms and aortic stenosis. COMPLICATIONS: There were none. CONSULTATIONS: There were none. PROCEDURES: There were none. HISTORY/HOSPITAL COURSE: This patient came to Rehabilitation from [facility] She had presented there with left-sided weakness on 07/27/2017. She was outside the window for tPA thrombolysis. MRI showed a subacute to acute lacunar infarct in the right barks[place] radiata. She also had extensive white matter changes consistent with chronic microvascular ischemic disease. 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 Echocardiogram showed mild aortic stenosis. She had improvement in her left arm weakness, though during the initial hospital stay, her left leg weakness became worse. She was otherwise medically stable and appropriate for inpatient rehabilitation. She made good progress in Rehabilitation. Her initial functional independence measure on 08/02/2017, was 71, which is consistent with prison level of care. She was requiring minimal assist for ambulation and transfers, and she needed setup to standby assist for dressing and other activities of daily living. Functional independence measure improved to 94 as of 08/14/2017, consistent with assisted living level of function. She had further improvement subsequently and was made independent in her room. She ascended and descended 18 stairs with 1 rail and contact guard assist. She was able to negotiate a curb step with a front-wheeled walker, and she had ambulated further than 150 feet. Speech Therapy worked with her on cognitive issues. She had mild deficits to working memory and divided attention, and had some reduced insight and mental flexibility. It was advised that she have assistance for managing medications. For her hypertension, she came out of the hospital on hydrochlorothiazide 25 mg per day. Amlodipine was added at bedtime and was increased to 5 mg with improved control of her blood pressure. She developed periodic limb movements of sleep in her left lower extremity. This was treated with Sinemet CR at bedtime 25/100 mg, and her symptoms resolved. Periodic limb movements of sleep after a CVA typically remit after 2- 3 weeks, so she was advised to stop the medication within approximately a week of discharge to see if she has any recurrence of symptoms. She has a history of essential thrombocytosis. She had been taking anagrelide, which was discontinued because of some association with cerebrovascular disease. She had increase in her platelets during her stay from 468 on 2017, to 752 on 08/12/2017. Treatment was discussed with [employer]/ Oncologist, Dr. Duffy, who advised initiation o pegylated alpha interferon 45 mcg q. week. She had the 1st dose on 08/13/2017, and platelets had improved from 752 to 605 as of 08/19/2017. She noticed some bruising on her legs and wondered if it might be related to the pegylated alpha interferon. She was advised to discuss this further when she follows up with Dr. Duffy. CONDITION UPON DISCHARGE: Good. ACTIVITY: Ad tanika. She was advised to have assistance at home as she was considered to be a fall risk with stair climbing, and her partner with whom she lives has vision issues and is unable to provide much physical assistance. She declined having other family stay with her or having transfer table operator helper. DIET: Regular. MEDICATIONS ON DISCHARGE: 1. Acetaminophen 650 mg p.o. q.4 hours p.r.n. 2. Amlodipine 5 mg p.o. q.h.s. 3. Atorvastatin 40 mg p.o. q.h.s. 4. Carbidopa/levodopa continuous release 25/100 mg 1 tab p.o. q.h.s. 5. Hydrochlorothiazide 25 mg p.o. daily. 6. Peginterferon mike 2a, 45 mcg subcutaneous q. Saturday. 7. Trazodone 12.5 mg p.o. q.h.s. ISSUES TO BE ADDRESSED AT FOLLOWUP: 1. Functional status and risk for fall: She will continue with home PT, OT, and TELEPATHIST, and can follow up with her primary care provider regarding these issues. 2. Essential thrombocytosis. She should continue to have a CBC done every Saturday. This can be done per her primary care provider. She should continue peginterferon mike 2a subcutaneous every Saturday. She will follow up with tar pot worker/oncologist Dr. Duffy. 3. Hypertension has been well controlled. She should follow up with her primary care provider. 4. Regarding cerebrovascular accident, she is to follow up with Neurologist, Dr. Bennett in mid to late September. Copy requested to: MD Leidy Collado MD /[id number]/MODL MTDD
== END 2017-08-20 14:30 | disposition home health service (06) | DRG 57 ==
LOC: BREH 14:15
PROVIDERS: ADMIT Internal Medicine; ATTEND Internal Medicine
PROC: F07M7ZZ Manual Therapy Techniques Treatment of Musculoskeletal System - Whole Body (ICD-10-PCS; principal; 2017-07-31)
PROC: F06Z8ZZ Motor Speech Treatment (ICD-10-PCS; principal; 2017-07-31)
PROC: F08Z7ZZ Vocational Activities and Functional Community or Work Reintegration Skills Treatment (ICD-10-PCS; principal; 2017-07-31)
DX: I69.393 Ataxia following cerebral infarction (principal); D47.3 Essential (hemorrhagic) thrombocythemia; I10 Essential (primary) hypertension; E78.5 Hyperlipidemia, unspecified; Z79.82 Long term (current) use of aspirin
CPT/HCPCS: 92507-GN; 92508-GN; 92522-GN; 92610-GN; 97110-GO; 97110-GP; 97112-GO; 97112-GP; 97116-GP; 97161-GP; 97166-GO; 97530-GO; 97530-GP; 97535-GO; 97542-GP; 99366-GN; 99366-GO; G0515-GO; J1650